=== PATIENT | male | born 1975 | race Caucasian/White ===

== ENCOUNTER 2018-10-16 09:41 | Inpatient (IN) ==
[2018-10-16] MEDS ORDERED: *HR* FentaNYL (PF) 100 MCG/2 ML VIAL IVP ONE (09:46)
[2018-10-16] MEDS ORDERED: 0.9 % Sodium Chloride 1,000 ML IVC ONE ×3 (09:46→11:12)
[2018-10-16] MEDS ORDERED: Ketorolac 30 MG/ML VIAL IVP ONE (09:46)
--- NOTE | 2018-10-16 10:33 | Emergency Department Note ---
Disposition Clinical Impression: Kidney stone on left side Sepsis Qualifiers: Sepsis type: sepsis due to unspecified organism Qualified Code(s): A41.9 - Sepsis, unspecified organism Disposition: Admitted As Inpatient Condition: Good Referrals: Solitario Pendleton DO [Primary Care Provider] - Forms: ED Satisfaction Letter Time of Disposition: 12:44 General Adult HPI - General Chief complaint: ED Back Pain/Injury Stated complaint: kidney stones Time Seen by Provider: 10/16/18 09:46 Source: patient, EMS Limitations: no limitations Nursing Notes Reviewed: Yes Vital Signs Reviewed: Yes - History of Present Illness HPI Narrative: 43 year old male presents to the ED with complaints pain with uriantion and left sided abdominal pain with radiation into his groin and testicle. Briana states that this is ismlia ot his episode one year ago when he presented iwth a large kidney sotne that required outpatient stent placemetn. Briana did have relief at that time. Briana stats that it has progressively gotten worse the past 24 hours and is rolling aroud the bed in discomfort. Briana statest hat he has been feels feverish at home without recorded fevers and weakness. His abdomen otherwise feels distended to him but no previous history of abdomial surgeries. Patient appears midlly diaphoretic at bedside likley secondary to pain. STate that he has been not able to pass stool over 24 hours but a few bess and it is otherwise extremely painful to urinate and that is left testicle is painful but it otherwise has resolve.d No history of torsion in the past Pain Scale: 10 - Related Data Home Medications Medication Instructions Recorded Confirmed No Known Home Drugs 10/16/18 10/16/18 Allergies Allergy/AdvReac Type Severity Reaction Status Date / Time No Known Allergies Allergy Verified 05/13/15 06:48 All systems ED: reviewed and negative except as stated. Review of Systems: As Per HPI Constitutional: Reports: chills. Denies: fever, weakness, weight change Eyes: Denies: eye pain, eye discharge, vision change ENT ED: Denies: ear pain, throat pain, dental pain, hearing loss, epistaxis, congestion, dysphagia Cardiovascular: Denies: chest pain, palpitations, dyspnea on exertion, edema, syncope Respiratory: Denies: cough, dyspnea, wheezes, hemoptysis, stridor Gastrointestinal: Reports: abdominal pain, nausea, vomiting. Denies: diarrhea, constipation, hematemesis, melena, hematochezia Genitourinary: Denies: urgency, dysuria, frequency, hematuria Musculoskeletal: Reports: back pain. Denies: neck pain, arthralgia, myalgia Integumentary: Denies: rash, abrasion, lesions Neurological: Denies: as per HPI, headache, weakness, numbness, paresthesias, confusion, abnormal gait, vertigo Psychiatric: Denies: anxiety, depression, suicidal thoughts, homicidal thoughts, auditory hallucinations, visual hallucinations Endocrine: Denies: fatigue Hematological/Lymphatic: Denies: easy bleeding, easy bruising Allergic/Immunologic: Denies: facial swelling, urticaria Past Medical History - Past Medical History Medical history: Reports: kidney stones, other Surgical history: Reports: vasectomy Psychiatric history: Reports: depression - Social History Smoking Status: Current every day smoker Smokeless Tobacco Status: Yes Alcohol use: Reports: none Drug use: Reports: none Physical Exam - General Limitations: no limitations General appearance: alert, anxious - Head Head exam: atraumatic, normocephalic, normal inspection - Eye Eye exam: Present: normal appearance, PERRL, EOMI - Expanded Eye Exam Pupils: Bilateral: reactive - ENT ENT exam: normal exam, normal oropharynx, mucous membranes moist - Expanded ENT Exam External ear exam: Present: normal external inspection Mouth exam: Present: normal external inspection Teeth exam: Present: normal inspection Throat exam: Present: normal inspection - Neck Neck exam: Present: normal inspection, full ROM, trachea midline - Chest Chest inspection: Present: normal inspection, symmetric chest wall rise - Respiratory Respiratory exam: Present: normal lung sounds bilaterally - Cardiovascular Cardiovascular exam: Present: regular rate, normal rhythm, normal heart sounds - Abdominal Exam Abdominal exam: Present: soft, tenderness (LLQ), distention. Absent: guarding, rebound, rigidity - Male exam: Present: normal inspection, normal testicular lie. Absent: induration, erythema - Extremities Exam Extremities exam: Present: normal inspection, full ROM. Absent: tenderness, pedal edema - Expanded Upper Extremity Exam Shoulder exam: Present: normal inspection, full ROM Arm exam: Present: normal inspection, full ROM Elbow exam: Present: normal inspection, full ROM Forearm/Wrist exam: Present: normal inspection, full ROM Hand exam: Present: normal inspection, full ROM Vascular exam: Normal: capillary refill, radial pulse - Expanded Lower Extremity Exam Hip/Pelvis exam: Present: normal inspection, full ROM Upper leg exam: Present: normal inspection, full ROM Knee exam: Present: normal inspection, full ROM Lower leg exam: Present: normal inspection, full ROM Ankle exam: Present: normal inspection, full ROM Foot/toe exam: Present: normal inspection, full ROM Neurovascular/Tendon exam: Absent: motor deficit, sensory deficit, tendon deficit - Back Exam Back exam: Present: normal inspection, full ROM, CVA tenderness (L) - Neurological Exam Neurological exam: Present: alert, oriented X3 - Expanded Neurological Exam Patient oriented to: Present: person, place, time Coma Scale Eye Opening: Spontaneous Coma Scale Motor Response: Obeys Commands Coma Scale Verbal Response: Oriented Coma Scale Total: 15 - Psychiatric Psychiatric exam: Present: normal affect, normal mood - Skin Skin exam: Present: warm, dry, intact, normal color Course Course Narrative: PLan is to obtain a CT of the abodomena to rule out kidney stone and then likely consult with urolgoy about dispotion. - Reevaluation(s) Reevaluation #1: updated patient on results. He has an infected kdiney stone on the left with hdyro and meets sepsis criteria but is not in septic shock. I have started ABX therapy and otherwise informed nursing staff that I was not informed about a (+) SIRS, and it was labelled as negative on the tracker board and needs to be changed to positive. Briana will not require 30ml/kg as he is not in shock and lactic acid is negative, and he is not hypotensive But we have given 3L. I will consult with urology for admission Time: 11:14 - Consultations Consultation #1: discussed case with dr. Cramer and he will see patient in consult. requests admission to medicine Time: 11:23 Consultation #2: discussed case with Dr. Mccartney and she has accepted to medicine. Time: 12:43 Vital Signs Temperature 100.6 F H 10/16/18 09:44 Pulse Rate 109 10/16/18 09:44 Respiratory Rate 20 10/16/18 09:44 Blood Pressure 136/73 10/16/18 09:44 O2 Sat by Pulse Oximetry 96 10/16/18 09:44 Temperature 100.6 F H 10/16/18 09:44 Pulse Rate 82 10/16/18 11:52 Respiratory Rate 20 10/16/18 11:52 Blood Pressure 115/66 10/16/18 11:52 O2 Sat by Pulse Oximetry 98 10/16/18 11:52 Oxygen Delivery Oxygen Delivery Room Air Medical Decision Making - Lab Data Result diagrams: 10/16/18 10:39 10/16/18 10:39 Lab Results 10/16/18 10/16/18 10/16/18 Range/Units 10:28 10:39 10:39 WBC 23.1 H (4.3-11.1) K/mcL RBC 4.88 (4.19-5.50) M/mcL Hgb 14.6 (12.9-16.9) g/dL Hct 43.2 (37.5-50.1) % MCV 88.5 (83.0-100.0) fL MCH 29.9 (28.0-33.3) pg MCHC 33.8 (31.6-35.5) g/dL RDW 12.5 (11.5-14.5) % Plt Count 204 (140-400) K/mcL MPV 8.8 L (9.4-12.4) fL Immature Gran % 1.0 (0-4) % Seg Neutrophils % 89.4 % Lymphocytes % 2.6 % Monocytes % 6.8 % Eosinophils % 0.0 % Basophils % 0.2 % Neutrophils # 20.7 H (1.6-8.9) K/mcL Lymphocytes # 0.6 (0.6-4.6) K/mcL Monocytes # 1.6 H (0.0-1.3) K/mcL Eosinophils # 0.0 (0.0-0.6) K/mcL Basophils # 0.0 (0.0-0.2) K/mcL Sodium (136-145) mEq/L Potassium (3.5-5.1) mEq/L Chloride (98-107) mEq/L Carbon Dioxide (23-29) mEq/L BUN (6-20) mg/dL Creatinine (0.70-1.30) mg/dL Est GFR ( Amer) (> 60) Est GFR (Non-Af Amer) (> 60) BUN/Creatinine Ratio (6-26) Glucose (70-105) mg/dL Calculated Osmolality (280-300) Lactic Acid 0.9 (0.5-2.2) mmol/L Calcium (8.6-10.3) mg/dL Total Bilirubin (0.3-1.0) mg/dL Direct Bilirubin (0.0-0.2) mg/dL Indirect Bilirubin (0.0-1.2) mg/dL AST (13-39) Units/L ALT (7-52) Units/L Alkaline Phosphatase (34-104) Units/L Serum Total Protein (6.4-8.9) g/dL Albumin (3.5-5.7) g/dL Globulin (2.4-3.5) g/dL Albumin/Globulin Ratio (1.1-2.2) Lipase (11-82) Units/L Urine Color Yellow (Yellow) Urine Clarity Turbid A (Clear) Urine pH 6.0 (5.0-8.0) pH Units Ur Specific [place] < 1.005 L (1.010-1.025) Urine Protein 100 H (Neg-Trace) mg/dL Urine Glucose (UA) Normal (Normal) mg/dL Urine Ketones Negative (Negative) mg/dL Urine Blood Large H (Negative) Urine Nitrite Negative (Negative) Urine Bilirubin Negative (Negative) Urine Urobilinogen Normal (Normal) mg/dL Ur Leukocyte Esterase Large H (Negative) Urine Microscopic RBC 0-3 (0-3) per hpf Urine Microscopic WBC TNTC H (0-3) per hpf Ur Squamous Epith Cells Many H (None-Few) per lpf Amorphous Sediment Moderate H (Few) Urine Bacteria Moderate H (None-Few) per hpf Hyaline Casts None Seen (None-Few) per lpf Ur Culture Indicated? YES A (NO) 10/16/18 Range/Units 10:39 WBC (4.3-11.1) K/mcL RBC (4.19-5.50) M/mcL Hgb (12.9-16.9) g/dL Hct (37.5-50.1) % MCV (83.0-100.0) fL MCH (28.0-33.3) pg MCHC (31.6-35.5) g/dL RDW (11.5-14.5) % Plt Count (140-400) K/mcL MPV (9.4-12.4) fL Immature Gran % (0-4) % Seg Neutrophils % % Lymphocytes % % Monocytes % % Eosinophils % % Basophils % % Neutrophils # (1.6-8.9) K/mcL Lymphocytes # (0.6-4.6) K/mcL Monocytes # (0.0-1.3) K/mcL Eosinophils # (0.0-0.6) K/mcL Basophils # (0.0-0.2) K/mcL Sodium 128 L (136-145) mEq/L Potassium 3.9 (3.5-5.1) mEq/L Chloride 94 L (98-107) mEq/L Carbon Dioxide 24 (23-29) mEq/L BUN 25 H (6-20) mg/dL Creatinine 2.05 H (0.70-1.30) mg/dL Est GFR ( Amer) 43 L (> 60) Est GFR (Non-Af Amer) 35 L (> 60) BUN/Creatinine Ratio 12 (6-26) Glucose 135 H (70-105) mg/dL Calculated Osmolality 272 L (280-300) Lactic Acid (0.5-2.2) mmol/L Calcium 9.1 (8.6-10.3) mg/dL Total Bilirubin 0.8 (0.3-1.0) mg/dL Direct Bilirubin 0.3 H (0.0-0.2) mg/dL Indirect Bilirubin 0.5 (0.0-1.2) mg/dL AST 15 (13-39) Units/L ALT 18 (7-52) Units/L Alkaline Phosphatase 66 (34-104) Units/L Serum Total Protein 7.6 (6.4-8.9) g/dL Albumin 3.8 (3.5-5.7) g/dL Globulin 3.8 H (2.4-3.5) g/dL Albumin/Globulin Ratio 1.0 L (1.1-2.2) Lipase 24 (11-82) Units/L Urine Color (Yellow) Urine Clarity (Clear) Urine pH (5.0-8.0) pH Units Ur Specific [place] (1.010-1.025) Urine Protein (Neg-Trace) mg/dL Urine Glucose (UA) (Normal) mg/dL Urine Ketones (Negative) mg/dL Urine Blood (Negative) Urine Nitrite (Negative) Urine Bilirubin (Negative) Urine Urobilinogen (Normal) mg/dL Ur Leukocyte Esterase (Negative) Urine Microscopic RBC (0-3) per hpf Urine Microscopic WBC (0-3) per hpf Ur Squamous Epith Cells (None-Few) per lpf Amorphous Sediment (Few) Urine Bacteria (None-Few) per hpf Hyaline Casts (None-Few) per lpf Ur Culture Indicated? (NO)
[2018-10-16 10:41] LABS: Bilirubin,Urine Negative (Negative); Blood,Urine Large (Negative); Clarity,Urine Turbid (Clear); Color,Urine Yellow (Yellow); Glucose,Urine (UA) Normal (Normal); Ketones,Urine Negative (Negative); Leukocyte Esterase,Urine Large (Negative); Nitrite,Urine Negative (Negative); Protein,Urine 100 mg/dL (Neg-Trace); Specific Gravity,Urine < 1.005 (1.010-1.025); Urobilinogen,Urine Normal (Normal)
[2018-10-16 10:43] LABS: Bacteria,Urine Moderate per hpf (None-Few); Hyaline Casts,Urine None Seen per lpf (None-Few); RBC,Urine 0-3 per hpf (0-3); Squamous Epithelial Cell,Urine Many per lpf (None-Few); WBC,Urine TNTC per hpf (0-3)
[2018-10-16 10:55] LABS: Amorphous Sediment,Urine Moderate (Few)
[2018-10-16 10:56] LABS: Basophils % 0.2 %; Hematocrit 43.2 % (37.5-50.1); Hemoglobin 14.6 g/dL (12.9-16.9); Lymphocytes # 0.6 K/mcL (0.6-4.6); Lymphocytes % 2.6 %; Mean Corpuscular HGB Conc 33.8 g/dL (31.6-35.5); Mean Corpuscular Hemoglobin 29.9 pg (28.0-33.3); Mean Corpuscular Volume 88.5 fL (83.0-100.0); Mean Platelet Volume 8.8 fL (9.4-12.4); Monocytes # 1.6 K/mcL (0.0-1.3); Monocytes % 6.8 %; Neutrophils # 20.7 K/mcL (1.6-8.9); Platelet Count 204 K/mcL (140-400); Red Blood Count 4.88 M/mcL (4.19-5.50); Red Cell Distribution Width 12.5 % (11.5-14.5); Segmented Neutrophils % 89.4 %; White Blood Count 23.1 K/mcL (4.3-11.1)
[2018-10-16] MEDS ORDERED: cefTRIAXone 1,000 MG in Water for inj. (sterile) 10 ML IVP ONE (10:56)
[2018-10-16 11:13] LABS: Albumin 3.8 g/dL (3.5-5.7); Bilirubin,Direct 0.3 mg/dL (0.0-0.2); Bilirubin,Indirect 0.5 mg/dL (0.0-1.2); Bilirubin,Total 0.8 mg/dL (0.3-1.0); Calcium 9.1 mg/dL (8.6-10.3); Globulin 3.8 g/dL (2.4-3.5); Potassium 3.9 mEq/L (3.5-5.1); Total Protein 7.6 g/dL (6.4-8.9)
[2018-10-16] MEDS ORDERED: Ondansetron 4 MG/2 ML VIAL IVP PRN (13:37)
[2018-10-16] MEDS ORDERED: Naloxone 0.4 MG/ML INJ IVP PRN (13:37)
--- NOTE | 2018-10-16 14:29 | Internal Med History&Physical ---
<Tai Dorsey - Last Filed: 10/16/18 14:50> Date of Encounter: 10/16/18 Time of Encounter: 14:00 Internal Medicine - H&P: HPI Chief complaint: L flank pain Admitted From: Emergency Dept History of present illness: Mr. Anderson is a 43 year old male with a past medical history of nephrolithiasis and a past surgical history of a right ureteral stent (2016) that presents for left-sided flank pain and fever. Patient says that he has been experiencing these symptoms for the past 2 days. He describes the pain radiating from his left flank all the way down to his left testicle. Patient says the pain is constant. Says it is sharp in nature. He also admits to a subjective fever for the past 2 days. He admits to dysuria but denies any geeta hematuria. Decreased urine output. He says that these symptoms are similar to the kidney stone that he had a couple years ago. He denies any nausea or vomiting. He says that he has been able to tolerate by mouth intake at home. Patient denies any family history of kidney stones. He says that he has been drinking about 8 sodas a day and drinks very little water. Upon presentation to the ED, patient presented with leukocytosis of 23.1, febrile at 100.6, and was tachycardic with a pulse rate of 109. Blood pressure was normotensive. Patient did also present with an elevated creatinine of 2.05 with a baseline of 1.49. Lactic acid levels were within normal limits. Liver enzymes within normal limits. Lipase was normal. UA showed large blood with positive leukocyte Estrace. CT of the abdomen showed a 7 x 5 mm obstructing calculus in the distal left ureter in the mid pelvis with mild hydronephrosis and hydroureter. Patient was subsequently started on IV Rocephin for suspected UTI. Consult was placed to urology for the obstructing renal calculus. Past Med Surg Social Fam HX - Past Medical History Medical history: kidney stones, other Additional medical history: psoriasis, Psychiatric history: depression - Past Surgical History Surgical History: vasectomy Additional surgical history: lithotripsy - Social History Smoking Status: Current every day smoker Smokeless Tobacco Status: Yes Alcohol use: none Drug use: none Internal Medicine - H&P: Meds No Known Home Drugs 10/16/18 [History] Allergy/AdvReac Type Severity Reaction Status Date / Time No Known Allergies Allergy Verified 05/13/15 06:48 All Systems PM: A 10-system review of systems was performed and is negative for pertinent findings except as documented above in the HPI. - EENT Eyes: as per HPI Nose, mouth and throat: dry mouth - Cardiovascular Cardiovascular ROS IM: no chest pain, no dyspnea, no edema - Respiratory Respiratory: no cough, no dyspnea, no wheezing, no excessive phlegm production - Gastrointestinal Gastrointestinal: constipation, no abdominal pain, no nausea, no vomiting - Genitourinary Genitourinary ROS male: difficulty urinating, flank pain, testicular pain - Musculoskeletal Musculoskeletal ROS IM: back pain - Neurological Neurological ROS: as per HPI, dizziness, headache(s) - Psychiatric Psychiatric: as per HPI - Constitutional Vitals: Temp Pulse Resp BP Pulse Ox 100.6 F H 82 18 115/58 98 10/16/18 09:44 10/16/18 11:52 10/16/18 14:09 10/16/18 14:09 10/16/18 11:52 Exam: GENERAL APPEARANCE: Obese, alert and cooperative, and appears to be in mild- moderate acute distress. HEAD: normocephalic. EYES: vision is grossly intact. EARS: hearing grossly intact. NOSE: No nasal discharge. THROAT: Oral cavity and pharynx showed mild dry mucosa. No inflammation, swelling, exudate, or lesions. Teeth and gingiva in good general condition. NECK: Neck supple, non-tender without lymphadenopathy, masses or thyromegaly. CARDIAC: Normal S1 and S2. No S3, S4 or murmurs. Rhythm is regular. There is no peripheral edema, cyanosis or pallor. Extremities are warm and well perfused. Capillary refill is less than 2 seconds. No carotid bruits. LUNGS: Clear to auscultation and percussion without rales, rhonchi, wheezing or diminished breath sounds. ABDOMEN: Positive bowel sounds. Soft, nondistended, nontender. No guarding or rebound. No masses. MUSKULOSKELETAL: Adequately aligned spine. ROM intact spine and extremities. No joint erythema or tenderness. Normal muscular development. Normal gait. BACK: Examination of the spine reveals normal gait and posture, no spinal deformity, symmetry of spinal muscles, without tenderness, decreased range of motion or muscular spasm. ; No CVA tenderness b/l. No suprapubic pain. Testicular exam revealed a positive cremaster reflux. No testicular hernia noted. No pain upon palpation b/l. EXTREMITIES: No significant deformity or joint abnormality. No edema. Peripheral pulses intact. No varicosities. LOWER EXTREMITY: Examination of both feet reveals all toes to be normal in size and symmetry, normal range of motion, normal sensation with distal capillary filling of less than 2 seconds without tenderness, swelling, discoloration, nodules, weakness or deformity; examination of both ankles, knees, legs, and hips reveals normal range of motion, normal sensation without tenderness, sw elling, discoloration, crepitus, weakness or deformity. SKIN: Skin normal color, texture and turgor with no lesions or eruptions. PSYCHIATRIC: The mental examination revealed the patient was oriented to person, place, and time. T Internal Med - H&P Results - Labs CBC & Chem 7: 10/16/18 10:39 10/16/18 10:39 Labs: Short CBC 10/16/18 Range/Units 10:39 WBC 23.1 H (4.3-11.1) K/mcL Hgb 14.6 (12.9-16.9) g/dL Hct 43.2 (37.5-50.1) % Plt Count 204 (140-400) K/mcL Neutrophils # 20.7 H (1.6-8.9) K/mcL BMP 10/16/18 10:39 Sodium 128 L Potassium 3.9 Chloride 94 L Carbon Dioxide 24 BUN 25 H Creatinine 2.05 H Glucose 135 H Calcium 9.1 Liver Function 10/16/18 Range/Units 10:39 Total Bilirubin 0.8 (0.3-1.0) mg/dL Direct Bilirubin 0.3 H (0.0-0.2) mg/dL AST 15 (13-39) Units/L ALT 18 (7-52) Units/L Alkaline Phosphatase 66 (34-104) Units/L Albumin 3.8 (3.5-5.7) g/dL Urine 10/16/18 Range/Units 10:28 Urine Color Yellow (Yellow) Urine Clarity Turbid A (Clear) Urine pH 6.0 (5.0-8.0) pH Units Ur Specific [place] < 1.005 L (1.010-1.025) Urine Protein 100 H (Neg-Trace) mg/dL Urine Glucose (UA) Normal (Normal) mg/dL - Impressions ITS Impressions Abdomen/Pelvis CT 10/16/18 09:46 IMPRESSION: 1. There is a 7 x 5 mm obstructing calculus in the distal left ureter in the mid pelvis causing mild hydronephrosis and hydroureter. 2. No intrarenal calculi. 3. 2 exophytic right renal cysts. D/ / Bjorn Carter MD / Bjorn Carter MD Interpreting Provider: Bjorn Carter MD - Assessment and Plan (1) Left ureteral calculus Current Visit: Yes Status: Acute Assessment and plan: CT of the abdomen showed a 7 x 5 mm obstructing calculus in the distal left ureter in the mid pelvis with mild hydronephrosis and hydroureter. Patient a history of previous renal stones with a prior ureteral stent on the R side. Urology was consulted in the ED and is aware of patient. Admitted with severe sepsis secondary to leukocytosis, tachycardia, and fever. No signs of shock. Patient started on rocephin in the ED. Plan: - IVF. - F/U with urology. - Pain control. - NPO. - Flomax 0.4 mg BID. (2) UTI (urinary tract infection) Current Visit: Yes Status: Acute Assessment and plan: Patient complaining of dysuria but denying gross hematuria. Patient was also febrile on admission. UA was positive for leukocyte esterase, blood, and white blood cells. Patient was started on Rocephin in the ED. Urine cultures were taken. Plan: - start ciprofloxacin 400 mg IV q12H. - Urine cultures pending. - C/W IVF. Qualifiers: Qualified Code(s): N39.0 - Urinary tract infection, site not specified (3) Severe sepsis Current Visit: Yes Status: Acute Assessment and plan: Leukocytosis of 23.1, tachycardia 109, and febrile with 100.6. Source of infection presumed UTI. Started on IV ABX in ED. Plan: - IVF. - Blood cultures pending. - Started on ciprofloxacin for UTI. - continue to monitor vitals. (4) ADRIENNE (acute kidney injury) Current Visit: Yes Status: Acute Assessment and plan: Creatinine of 2.05 with a baseline of 1.49 and baseline GFR of 52. Likely secondary to hypovolemia in setting of UTI, obstructive calculus, sepsis, and dehydration. Plan: - IVF. - Renal dose medications. - Avoid nephrotoxins. (5) Hyponatremia Current Visit: Yes Status: Acute Assessment and plan: Likely hypovolemic in etiology. Plan: - NS IVF. (6) Tobacco abuse Current Visit: Yes Status: Acute Assessment and plan: - Counseled on cessation. (7) DVT prophylaxis Current Visit: Yes Status: Acute Assessment and plan: - SCDs. - Time Spent With Patient Total time spent is greater than 50% in coordination of care (as documented) at patient's floor/unit and/or counseling patient: <Sergio Fallon Dee - Last Filed: 10/16/18 19:04> Date of Encounter: 10/16/18 Internal Medicine - H&P: HPI History of present illness: Mr. Anderson is a 43 year old male All Systems PM: A 10-system review of systems was performed and is negative for pertinent findings except as documented above in the HPI. - Constitutional Vitals: Temp Pulse Resp BP Pulse Ox 97.8 F 82 18 103/72 96 10/16/18 14:56 10/16/18 14:56 10/16/18 14:56 10/16/18 14:56 10/16/18 14:56 Internal Med - H&P Results - Labs CBC & Chem 7: 10/16/18 10:39 10/16/18 10:39 Labs: Short CBC 10/16/18 Range/Units 10:39 WBC 23.1 H (4.3-11.1) K/mcL Hgb 14.6 (12.9-16.9) g/dL Hct 43.2 (37.5-50.1) % Plt Count 204 (140-400) K/mcL Neutrophils # 20.7 H (1.6-8.9) K/mcL BMP 10/16/18 10:39 Sodium 128 L Potassium 3.9 Chloride 94 L Carbon Dioxide 24 BUN 25 H Creatinine 2.05 H Glucose 135 H Calcium 9.1 Liver Function 10/16/18 Range/Units 10:39 Total Bilirubin 0.8 (0.3-1.0) mg/dL Direct Bilirubin 0.3 H (0.0-0.2) mg/dL AST 15 (13-39) Units/L ALT 18 (7-52) Units/L Alkaline Phosphatase 66 (34-104) Units/L Albumin 3.8 (3.5-5.7) g/dL Urine 10/16/18 Range/Units 10:28 Urine Color Yellow (Yellow) Urine Clarity Turbid A (Clear) Urine pH 6.0 (5.0-8.0) pH Units Ur Specific [place] < 1.005 L (1.010-1.025) Urine Protein 100 H (Neg-Trace) mg/dL Urine Glucose (UA) Normal (Normal) mg/dL - Impressions ITS Impressions Abdomen/Pelvis CT 10/16/18 09:46 IMPRESSION: 1. There is a 7 x 5 mm obstructing calculus in the distal left ureter in the mid pelvis causing mild hydronephrosis and hydroureter. 2. No intrarenal calculi. 3. 2 exophytic right renal cysts. D/ / Bjorn Carter MD / Bjorn Carter MD Interpreting Provider: Bjorn Carter MD - Assessment and Plan (1) Severe sepsis Current Visit: Yes Status: Acute (2) Left ureteral calculus Current Visit: Yes Status: Acute (3) UTI (urinary tract infection) Current Visit: Yes Status: Acute Qualifiers: Urinary tract infection type: acute cystitis Hematuria presence: with hematuria Qualified Code(s): N30.01 - Acute cystitis with hematuria (4) Hyponatremia Current Visit: Yes Status: Acute (5) ADRIENNE (acute kidney injury) Current Visit: Yes Status: Acute (6) Tobacco abuse Current Visit: Yes Status: Acute - Time Spent With Patient Total time spent is greater than 50% in coordination of care (as documented) at patient's floor/unit and/or counseling patient: - Attending Attestation I examined this patient and my medical decision-making was reviewed with the Resident Physician on 10/16/18. I agree with the documented findings, disposition and treatment plan as described except to the extent set forth below. Mr Anderson is 43 y/o man with hx of prior kidney stone presented to ED with R side pain and urinary symptoms. Found to have obstructing stone and evidence of UTI. He has received pain medications and is resting. Exam as above - lungs clear. Heart reg and not tachy now. Abd soft. WBC elevated. ADRIENNE on labs as well most likely due to obstruction and infection/dehydration. Appreciate urology input. Plan Sepsis, UTI, obstructing stone, ADRIENNE - IV fluids, abx, pain control. OR per urology.
[2018-10-16] MEDS: 0.9 % Sodium Chloride 1,000 ML IVC SCH ×2 (14:47→22:41)
[2018-10-16] MEDS: OXYCODONE Oral CONC 10 MG/0.5 ML ORAL.SYG SL PRN ×2 (14:47→20:38)
--- NOTE | 2018-10-16 15:07 | Urology Progress Note ---
Date of Encounter: 10/16/18 (Seen and examined with full consult note to follow. Obstructing left ureteral calculus with hydronephrosis and positive urine. HD stable with normal lactate. Plan: Abx, pain control, urinary diversion with stent GENIA (tomorrow 745 AM).) Time of Encounter: 15:05 Objective Initial Vital Signs Temp Pulse Resp BP Pulse Ox 100.6 F H 109 20 136/73 96 10/16/18 09:44 10/16/18 09:44 10/16/18 09:44 10/16/18 09:44 10/16/18 09:44 - Labs 10/16/18 10:39 10/16/18 10:39 Diabetes panel 10/16/18 Range/Units 10:39 Sodium 128 L (136-145) mEq/L Potassium 3.9 (3.5-5.1) mEq/L Chloride 94 L (98-107) mEq/L Carbon Dioxide 24 (23-29) mEq/L BUN 25 H (6-20) mg/dL Creatinine 2.05 H (0.70-1.30) mg/dL Glucose 135 H (70-105) mg/dL Calcium 9.1 (8.6-10.3) mg/dL AST 15 (13-39) Units/L ALT 18 (7-52) Units/L Alkaline Phosphatase 66 (34-104) Units/L Albumin 3.8 (3.5-5.7) g/dL Calcium panel 10/16/18 Range/Units 10:39 Calcium 9.1 (8.6-10.3) mg/dL Albumin 3.8 (3.5-5.7) g/dL Pituitary panel 10/16/18 Range/Units 10:39 Sodium 128 L (136-145) mEq/L Potassium 3.9 (3.5-5.1) mEq/L Chloride 94 L (98-107) mEq/L Carbon Dioxide 24 (23-29) mEq/L BUN 25 H (6-20) mg/dL Creatinine 2.05 H (0.70-1.30) mg/dL Glucose 135 H (70-105) mg/dL Calcium 9.1 (8.6-10.3) mg/dL Adrenal panel 10/16/18 Range/Units 10:39 Sodium 128 L (136-145) mEq/L Potassium 3.9 (3.5-5.1) mEq/L Chloride 94 L (98-107) mEq/L Carbon Dioxide 24 (23-29) mEq/L BUN 25 H (6-20) mg/dL Creatinine 2.05 H (0.70-1.30) mg/dL Glucose 135 H (70-105) mg/dL Calcium 9.1 (8.6-10.3) mg/dL Total Bilirubin 0.8 (0.3-1.0) mg/dL AST 15 (13-39) Units/L ALT 18 (7-52) Units/L Alkaline Phosphatase 66 (34-104) Units/L Albumin 3.8 (3.5-5.7) g/dL Consult Discharge Plan - Plan Referrals: Solitario Pendleton DO [Primary Care Provider] -
[2018-10-16] MEDS: Ketorolac 15 MG/ML VIAL IVP PRN (17:42)
[2018-10-17] MEDS: Ketorolac 15 MG/ML VIAL IVP PRN ×3 (02:10→16:35)
[2018-10-17 04:50] LABS: Potassium 4.2 mEq/L (3.5-5.1)
[2018-10-17 05:12] LABS: Hematocrit 36.6 % (37.5-50.1); Mean Corpuscular HGB Conc 33.3 g/dL (31.6-35.5); Mean Corpuscular Hemoglobin 30.2 pg (28.0-33.3); Mean Corpuscular Volume 90.6 fL (83.0-100.0); Mean Platelet Volume 9.6 fL (9.4-12.4); Platelet Count 178 K/mcL (140-400); Red Blood Count 4.04 M/mcL (4.19-5.50)
[2018-10-17 05:18] LABS: Hemoglobin 12.2 g/dL (12.9-16.9)
[2018-10-17 05:34] LABS: Enterococcus by PCR Not Detected (Not Detect); blaKPC Carbapenem-Resist Gene Not Detected (Not Detect); mecA Methicillin-Resist Gene Not Detected (Not Detect); vanA/B Vancomycin-Resist Genes Not Detected (Not Detect)
[2018-10-17 05:35] LABS: Acinetobacter baumannii by PCR Not Detected (Not Detect); Candida albicans by PCR Not Detected (Not Detect); Candida glabrata by PCR Not Detected (Not Detect); Candida krusei by PCR Not Detected (Not Detect); Candida parapsilosis by PCR Not Detected (Not Detect); Candida tropicalis by PCR Not Detected (Not Detect); Enterobacter cloacae Cmplx PCR Not Detected (Not Detect); Enterobacteriaceae by PCR Not Detected (Not Detect); Escherichia coli by PCR Not Detected (Not Detect); Klebsiella oxytoca by PCR Not Detected (Not Detect); Klebsiella pneumoniae by PCR Not Detected (Not Detect); Proteus by PCR Not Detected (Not Detect); Pseudomonas aeruginosa by PCR Not Detected (Not Detect); Serratia marcescens by PCR Not Detected (Not Detect); Staphylococcus aureus by PCR DETECTED (Not Detect); Staphylococcus by PCR DETECTED (Not Detect); Streptococcus agalactiae(B)PCR Not Detected (Not Detect); Streptococcus by PCR Not Detected (Not Detect); Streptococcus pneumoniae PCR Not Detected (Not Detect); Streptococcus pyogenes (A) PCR Not Detected (Not Detect)
[2018-10-17] MEDS ORDERED: *HR* FentaNYL (PF) 100 MCG/2 ML VIAL ONE (07:08)
[2018-10-17] MEDS ORDERED: *HR* Midazolam HCl 2 MG/2 ML VIAL ONE (07:08)
[2018-10-17] MEDS ORDERED: *HR* Propofol 200 MG/20 ML VIAL IVP ONE (07:08)
[2018-10-17] MEDS ORDERED: Albuterol 2.5 MG/3 ML NEBULIZER IH ONE ×2 (07:24→09:52)
--- NOTE | 2018-10-17 07:25 | Anesthesia Evaluation PreOp ---
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) Other Medical History: Renal (stones), Other (BMI 41) Anesthesia History: No Prior Anesthetic Complications, Past Anesthesia (stone extraction) Alcohol Use: none Drug use: none Medications and Allergies No Known Home Drugs 10/16/18 [History] Allergy/AdvReac Type Severity Reaction Status Date / Time No Known Allergies Allergy Verified 05/13/15 06:48 - Meds/Allergy Pre-op Review Medications Reviewed: Yes Allergies Reviewed: Yes Beta Blockers on Current Med List: No Anesthesia Results - Labs 10/17/18 03:53 10/17/18 03:53 Anesthesia Exam Vital Signs/O2 Sat, Most Current Temp Pulse Resp BP Pulse Ox 98.2 F 87 18 130/78 91 10/17/18 04:33 10/17/18 04:33 10/17/18 04:33 10/17/18 04:33 10/17/18 04:33 Weight: 122kg - HEENT Pupil (Motor): Pupils equal, EOMI Mallampati: III Teeth: Normal Oral Opening: Greater than 3 - 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
[2018-10-17] MEDS ORDERED: Isovue-300 50 ML VIAL ONE (07:31)
[2018-10-17] MEDS ORDERED: Acetaminophen IV 1,000 MG/100 ML INFUS..BTL ONE (07:39)
[2018-10-17] MEDS ORDERED: *HR* PHENYLEPHRINE 1,000 MCG/10 ML SYRINGE IVP ONE (07:59)
[2018-10-17] MEDS ORDERED: Ketorolac 30 MG/ML VIAL ONE (08:04)
--- NOTE | 2018-10-17 08:23 | Operative Note ---
Date of procedure: 10/17/18 Pre-op diagnosis: left ureteral calculus Post-op diagnosis: same Procedure: Cystoscopy, left retrograde ureteral pyelography, left double-J stent placement Implants: 6 x 26 left double-J stent Complications: None Anesthesia: VERÓNICA Surgeon: Camacho Cramer Was there an emergency veterinary assistant present: No Estimated blood loss (cc): 0 Specimen: 0 Condition: stable Disposition: PACU Procedure in Detail: The patient brought the operating theater placed on table supine position. Is identified by name and administered a general anesthetic. Patient placed in dorsal lithotomy. The patient was prepped and draped in the normal sterile fashion. A cystoscope was inserted into the urethral meatus and advanced with the bladder under direct visualization. There were no mucosal abnormalities. An open-ended catheter was placed the tip of the left ureteral orifice gentle injection of contrast a left retrograde ureteral Polygram was performed. Intraoperative interpretation of radial pyelographic images revealed desiccation in the distal ureter consistent with stone seen on CT. There was moderate hydronephrosis. Based on these findings urinary diversion by stenting was indicated. A Glidewire was advanced the left renal pelvis. Over the Glidewire a 6 x 26stent was advanced. Was sent was felt be in good position the Glidewire was removed. Proximal and distal curls stent were confirmed in good position via fluoroscopy. All answers were removed from the bladder. His ended the operative procedure.
[2018-10-17] MEDS ORDERED: Ringers Solution, Lactated 1,000 ML ONE (08:27)
--- NOTE | 2018-10-17 08:58 | Anesthesia Evaluation Post Op ---
Date of Encounter: 10/17/18 Time of Encounter: 08:57 - Vital Signs Vital Signs: Selected Entries 10/17/18 08:22 10/17/18 08:42 Temperature 98.5 F Pulse Rate 91 Respiratory Rate 18 Blood Pressure 102/62 O2 Sat by Pulse Oximetry 96 - Lungs Lungs: Clear Ascult./Percussion - Airway Airway: Non-obstructed - Cardiovascular Regular Rate - Mental Status Mental Status: Alert & Oriented, Answers Appropriately - Pain Pain Scale: 0 Pain Scale used: Numeric (1 - 10) - Nausea Vomiting Nausea Vomiting: Not Present - Hydration Hydration: Ice chips, Has not voided - Discharge PostOp Status: Transfer Patient to floor
[2018-10-17] MEDS ORDERED: Ondansetron 4 MG/2 ML VIAL IVP PRN (09:52)
[2018-10-17] MEDS ORDERED: Naloxone 0.4 MG/ML INJ IVP PRN (09:52)
--- NOTE | 2018-10-17 12:33 | Internal Med Progress Note ---
<SunitaTai - Last Filed: 10/17/18 12:31> Hospitalist Progress Note - Encounter Date of Encounter: 10/17/18 Time of Encounter: 08:20 - Subjective Interval History: When seen today patient said his pain has been controlled. Denies any nausea or vomiting. Denies any chest pain or shortness of breath. Denies any back pain. Denies any fever. - Exam Vitals: Temp Pulse Resp BP Pulse Ox 98.1 F 77 17 127/78 96 10/17/18 11:42 10/17/18 11:42 10/17/18 11:42 10/17/18 11:42 10/17/18 11:42 Exam: GENERAL APPEARANCE: Obese, alert and cooperative, and appears to be in mild- moderate acute distress. HEAD: normocephalic. EYES: vision is grossly intact. EARS: hearing grossly intact. NOSE: No nasal discharge. THROAT: Oral cavity and pharynx showed mild dry mucosa. No inflammation, swelling, exudate, or lesions. Teeth and gingiva in good general condition. NECK: Neck supple, non-tender without lymphadenopathy, masses or thyromegaly. CARDIAC: Normal S1 and S2. No S3, S4 or murmurs. Rhythm is regular. There is no peripheral edema, cyanosis or pallor. Extremities are warm and well perfused. Capillary refill is less than 2 seconds. No carotid bruits. LUNGS: Clear to auscultation and percussion without rales, rhonchi, wheezing or diminished breath sounds. ABDOMEN: Positive bowel sounds. Soft, nondistended, nontender. No guarding or rebound. No masses. MUSKULOSKELETAL: Adequately aligned spine. ROM intact spine and extremities. No joint erythema or tenderness. Normal muscular development. Normal gait. BACK: Examination of the spine reveals normal gait and posture, no spinal deformity, symmetry of spinal muscles, without tenderness, decreased range of motion or muscular spasm. EXTREMITIES: No significant deformity or joint abnormality. No edema. Peripheral pulses intact. No varicosities. LOWER EXTREMITY: Examination of both feet reveals all toes to be normal in size and symmetry, normal range of motion, normal sensation with distal capillary filling of less than 2 seconds without tenderness, swelling, discoloration, nodules, weakness or deformity; examination of both ankles, knees, legs, and hips reveals normal range of motion, normal sensation without tenderness, swelling, discoloration, crepitus, weakness or deformity. SKIN: Skin normal color, texture and turgor with no lesions or eruptions. PSYCHIATRIC: The mental examination revealed the patient was oriented to person, place, and time. - Assessment and Plan (1) Left ureteral calculus Current Visit: Yes Status: Acute Assessment and Plan: S/P L ureter double-J stent placement earlier today. Pain is well controlled. Denies dysuria or hematuria. Plan: - Start regular diet. - C/W pain control. - C/W IVF. - Flomax 0.4 mg PO BID. (2) UTI (urinary tract infection) Current Visit: Yes Status: Acute Assessment and Plan: Patient complaining of dysuria but denying gross hematuria on presentation. Patient was also febrile on admission. UA was positive for leukocyte esterase, blood, and white blood cells. Patient was started on Rocephin in the ED. Urine cultures were taken. WBC downtrending. Plan: - C/W ciprofloxacin 400 mg IV q12H. - Urine cultures pending. - C/W IVF. (3) Severe sepsis Current Visit: Yes Status: Acute Assessment and Plan: Admission labs: Leukocytosis of 23.1, tachycardia 109, and febrile with 100.6. Source of infection presumed UTI. Started on IV ABX in ED. WBC today is downdtrending. Blood cultures positive for Gram positive Cocci - Staph A. Plan: - Echocardiogram to r/o endocarditis. - Repeat blood cultures. - Start cefazolin. - IVF. - C/W ciprofloxacin day #2 for UTI. - continue to monitor vitals. (4) Bacteremia Current Visit: Yes Status: Acute Assessment and Plan: See plan for sepsis. (5) ADRIENNE (acute kidney injury) Current Visit: Yes Status: Acute Assessment and Plan: Creatinine of 2.05 with a baseline of 1.49 and baseline GFR of 52. Likely secondary to hypovolemia in setting of UTI, obstructive calculus, sepsis, and dehydration. Renal function improving with a creatinine of 1.67 today. Plan: - C/W IVF. - Renal dose medications. - Avoid nephrotoxins. (6) Hyponatremia Current Visit: Yes Status: Acute Assessment and Plan: Likely hypovolemic in etiology. Plan: - NS IVF. (7) Tobacco abuse Current Visit: Yes Status: Acute Assessment and Plan: - Counseled on cessation. (8) DVT prophylaxis Current Visit: Yes Status: Acute Assessment and Plan: - SCDs. - Time Spent with Patient Total time spent is greater than 50% in coordination of care (as documented) at patient's floor/unit and/or counseling patient: Internal Medicine: Result - Labs CBC & Chem 7: 10/17/18 03:53 10/17/18 03:53 Labs: Short CBC 10/17/18 Range/Units 03:53 WBC 12.0 H (4.3-11.1) K/mcL Hgb 12.2 L D (12.9-16.9) g/dL Hct 36.6 L (37.5-50.1) % Plt Count 178 (140-400) K/mcL BMP 10/17/18 03:53 Sodium 131 L Potassium 4.2 Chloride 104 Carbon Dioxide 20 L BUN 28 H Creatinine 1.67 H Glucose 110 H Calcium 8.0 L - Impressions Impressions Fluoroscopy 10/17/18 00:00 IMPRESSION: Intraprocedural fluoroscopic spot images as above. See separate procedure report for more information. D/ / Raphael Fox MD / Raphael Fox MD Interpreting Provider: Raphael Fox MD X-Ray 10/17/18 00:00 IMPRESSION: Intraprocedural fluoroscopic spot images as above. See separate procedure report for more information. D/ / Raphael Fox MD / Raphael Fox MD Interpreting Provider: Raphael Fox MD Consult Discharge Plan - Plan Referrals: Solitario Pendleton DO [Primary Care Provider] - <Sergio Fallon - Last Filed: 10/17/18 17:56> Hospitalist Progress Note - Encounter Date of Encounter: 10/17/18 - Exam Vitals: Temp Pulse Resp BP Pulse Ox 98.1 F 77 17 127/78 96 10/17/18 11:42 10/17/18 11:42 10/17/18 11:42 10/17/18 11:42 10/17/18 11:42 - Assessment and Plan (1) Severe sepsis Current Visit: Yes Status: Acute (2) Left ureteral calculus Current Visit: Yes Status: Acute (3) UTI (urinary tract infection) Current Visit: Yes Status: Acute (4) Hyponatremia Current Visit: Yes Status: Acute (5) ADRIENNE (acute kidney injury) Current Visit: Yes Status: Acute (6) Tobacco abuse Current Visit: Yes Status: Acute - Time Spent with Patient Total time spent is greater than 50% in coordination of care (as documented) at patient's floor/unit and/or counseling patient: Internal Medicine: Result - Labs CBC & Chem 7: 10/17/18 03:53 10/17/18 03:53 Labs: Short CBC 10/17/18 Range/Units 03:53 WBC 12.0 H (4.3-11.1) K/mcL Hgb 12.2 L D (12.9-16.9) g/dL Hct 36.6 L (37.5-50.1) % Plt Count 178 (140-400) K/mcL BMP 10/17/18 03:53 Sodium 131 L Potassium 4.2 Chloride 104 Carbon Dioxide 20 L BUN 28 H Creatinine 1.67 H Glucose 110 H Calcium 8.0 L - Impressions Impressions Fluoroscopy 10/17/18 00:00 IMPRESSION: Intraprocedural fluoroscopic spot images as above. See separate procedure report for more information. D/ / Raphael Fox MD / Raphael Fox MD Interpreting Provider: Raphael Fox MD X-Ray 10/17/18 00:00 IMPRESSION: Intraprocedural fluoroscopic spot images as above. See separate procedure report for more information. D/ / Raphael Fox MD / Raphael Fox MD Interpreting Provider: Raphael Fox MD - Attending Attestation I examined this patient and my medical decision-making was reviewed with the Resident Physician on 10/17/18. I agree with the documented findings, disposition and treatment plan as described except to the extent set forth below. Mr Anderson is currently admitted for acute sepsis due to MSSA. He has hydronephrosis due to stone. He is s/p stent this AM. He remains high risk due to potential for worsening clinical status. Mr Anderson is just back from OR. He is having some pain. No fever. No nausea. Exam - restless. No wheeze. Plan - change to Ancef IV. Echo. Repeat cultures. Will need ID to see Saturday. <Tai Dorsey - Last Filed: 10/17/18 12:31> (2) UTI (urinary tract infection) Qualifiers: Urinary tract infection type: acute cystitis Hematuria presence: with hematuria Qualified Code(s): N30.01 - Acute cystitis with hematuria <Sergio Fallon - Last Filed: 10/17/18 17:56> (3) UTI (urinary tract infection) Qualifiers: Urinary tract infection type: acute cystitis Hematuria presence: without he maturia Qualified Code(s): N30.00 - Acute cystitis without hematuria
--- NOTE | 2018-10-17 13:29 | Urology - Consult Note ---
<Bridgette Flores N - Last Filed: 10/17/18 13:25> Date of Encounter: 10/17/18 Time of Encounter: 11:15 - Assessment and Plan (1) Ureteral stone with hydronephrosis Current Visit: Yes Status: Acute Assessment and plan: Patient is a 43-year-old male who presents with a 7 x 5 mm left ureteral stone and hydronephrosis. Patient is status post cystoscopy, left retrograde pyelogram and left ureteral stent placement with Dr. Cramer. Patient is recovering well postoperatively. Vital signs are stable and afebrile. (2) UTI (urinary tract infection) Current Visit: Yes Status: Acute Assessment and plan: Patient is a 43-year-old male who presents with a urinary tract infection. Preliminary urine culture is positive for gram-positive cocci. Patient is receiving IV Cipro. Patient is status post urinary diversion with ureteral stent placement, and he is recovering very well. Qualifiers: Urinary tract infection type: acute cystitis Hematuria presence: without hematuria Qualified Code(s): N30.00 - Acute cystitis without hematuria (3) Sepsis Current Visit: Yes Status: Acute Assessment and plan: Patient is a 43-year-old male who presents with urosepsis. Preliminary blood cultures are positive for gram-positive cocci, and patient is receiving IV Cipro. Currently, vital signs are stable and afebrile. White blood cell count is reassuring, and renal function is improving. We will plan to await final culture and sensitivity report before patient may be considered for discharge. Urology CN:[facility] Consult date: 10/17/18 Reason for consult Urology: Hydronephrosis (left ureteral stone; UTI) Requesting physician: Adriana Nicole History of present illness: Patient is a 43-year-old male who presents with a 5 x 7 mm left ureteral stone, hydronephrosis and urinary tract infection. Patient initially presented to the emergency department with a 2 day history of severe left-sided flank pain with radiation to the groin and left testicle. Patient reports pain became so severe that he had to call 911 for EMS transfer to the hospital. Patient also experienced dysuria, fever, chills, nausea and vomiting. Patient has a long- standing history of nephrolithiasis and has undergone ureteroscopy as well as ESWL procedure. Patient most recently had a ureteroscopic stone extraction with stent placement in 2016, and he reports recovering well from that procedure. Patient has a known family history of renal stones through his mother. Currently, patient is sitting upright in bed in no apparent distress, and he denies any fever, chills, flank pain or gross hematuria. Past Med Surg Social Fam HX - Past Medical History Medical history: kidney stones, other Additional medical history: psoriasis, Psychiatric history: depression - Past Surgical History Surgical History: vasectomy Additional surgical history: lithotripsy - Social History Smoking Status: Current every day smoker Smokeless Tobacco Status: Yes Alcohol use: none Drug use: none - Family History Grandfather Living Status: Hx Family Cardiac Disorders: Yes Medications and Allergies No Known Home Drugs 10/16/18 [History] Allergy/AdvReac Type Severity Reaction Status Date / Time No Known Allergies Allergy Verified 05/13/15 06:48 Review of Systems - Constitutional no chills, no fatigue, no fever(s) - EENT Nose, mouth and throat: no dizziness, no headache(s) - Cardiovascular no chest pain, no diaphoresis - Respiratory no cough, no dyspnea - Gastrointestinal abdominal pain, nausea, no vomiting - Genitourinary flank pain, no difficulty urinating, no dysuria, no hematuria, no urinary frequency, no urinary hesitancy, no urinary incontinence, no urinary urgency - Musculoskeletal back pain, no muscle weakness - Integumentary no erythema, no rash - Neurological no confusion, no sensory deficit - Psychiatric no anxiety, no confusion - Hematologic/Lymphatic no easy bleeding, no easy bruising - Allergic/Immunologic no throat swelling, no wheezing Exam Initial Vital Signs Temp Pulse Resp BP Pulse Ox 100.6 F H 109 20 136/73 96 10/16/18 09:44 10/16/18 09:44 10/16/18 09:44 10/16/18 09:44 10/16/18 09:44 - General physical appearance Present: well developed, no distress, no pain - Eyes Present: PERRL, normal ocular movement - ENT Present: normal nares, no hearing loss, no congestion - Neck Present: no masses, trachea midline, no lymphadenopathy - Respiratory Present: normal respiratory effort - Cardiovascular Cardiovascular exam IM: RRR - Abdomen Abdomen: Present: soft, non tender. Absent: distended - Genitourinary other (No CVAT) - Integumentary Present: no rash, no abnormal pigmentation - Neurologic Present: normal coordination - Musculoskeletal Present: other (Normal posture) Urology Results - Labs 10/17/18 03:53 10/17/18 03:53 Abnormal lab results WBC 12.0 K/mcL (4.3-11.1) H 10/17/18 03:53 RBC 4.04 M/mcL (4.19-5.50) L 10/17/18 03:53 Hgb 12.2 g/dL (12.9-16.9) L D 10/17/18 03:53 Hct 36.6 % (37.5-50.1) L 10/17/18 03:53 MPV 8.8 fL (9.4-12.4) L 10/16/18 10:39 20.7 K/mcL (1.6-8.9) H 10/16/18 10:39 1.6 K/mcL (0.0-1.3) H 10/16/18 10:39 Sodium 131 mEq/L (136-145) L 10/17/18 03:53 Chloride 94 mEq/L (98-107) L 10/16/18 10:39 Carbon Dioxide 20 mEq/L (23-29) L 10/17/18 03:53 BUN 28 mg/dL (6-20) H 10/17/18 03:53 1.67 mg/dL (0.70-1.30) H 10/17/18 03:53 Est GFR ( Amer) 54 (> 60) L 10/17/18 03:53 Est GFR (Non-Af Amer) 45 (> 60) L 10/17/18 03:53 Glucose 110 mg/dL (70-105) H 10/17/18 03:53 278 (280-300) L 10/17/18 03:53 Calcium 8.0 mg/dL (8.6-10.3) L 10/17/18 03:53 0.3 mg/dL (0.0-0.2) H 10/16/18 10:39 3.8 g/dL (2.4-3.5) H 10/16/18 10:39 1.0 (1.1-2.2) L 10/16/18 10:39 Turbid (Clear) A 10/16/18 10:28 Ur Specific [place] < 1.005 (1.010-1.025) L 10/16/18 10:28 100 mg/dL (Neg-Trace) H 10/16/18 10:28 Large (Negative) H 10/16/18 10:28 Ur Leukocyte Esterase Large (Negative) H 10/16/18 10:28 TNTC per hpf (0-3) H 10/16/18 10:28 Ur Squamous Epith Cells Many per lpf (None-Few) H 10/16/18 10:28 Amorphous Sediment Moderate (Few) H 10/16/18 10:28 Moderate per hpf (None-Few) H 10/16/18 10:28 Ur Culture Indicated? YES (NO) A 10/16/18 10:28 Staphylococcus sp PCR DETECTED (Not Detect) A 10/16/18 11:25 Staph aureus (PCR) DETECTED (Not Detect) A 10/16/18 11:25 Diabetes panel 10/17/18 Range/Units 03:53 Sodium 131 L (136-145) mEq/L Potassium 4.2 (3.5-5.1) mEq/L Chloride 104 (98-107) mEq/L Carbon Dioxide 20 L (23-29) mEq/L BUN 28 H (6-20) mg/dL Creatinine 1.67 H (0.70-1.30) mg/dL Glucose 110 H (70-105) mg/dL Calcium 8.0 L (8.6-10.3) mg/dL Calcium panel 10/17/18 Range/Units 03:53 Calcium 8.0 L (8.6-10.3) mg/dL Pituitary panel 10/17/18 Range/Units 03:53 Sodium 131 L (136-145) mEq/L Potassium 4.2 (3.5-5.1) mEq/L Chloride 104 (98-107) mEq/L Carbon Dioxide 20 L (23-29) mEq/L BUN 28 H (6-20) mg/dL Creatinine 1.67 H (0.70-1.30) mg/dL Glucose 110 H (70-105) mg/dL Calcium 8.0 L (8.6-10.3) mg/dL Adrenal panel 10/17/18 Range/Units 03:53 Sodium 131 L (136-145) mEq/L Potassium 4.2 (3.5-5.1) mEq/L Chloride 104 (98-107) mEq/L Carbon Dioxide 20 L (23-29) mEq/L BUN 28 H (6-20) mg/dL Creatinine 1.67 H (0.70-1.30) mg/dL Glucose 110 H (70-105) mg/dL Calcium 8.0 L (8.6-10.3) mg/dL All other labs normal. - Imaging CT scan - abdomen: report reviewed CT scan - pelvis: report reviewed Consult Discharge Plan - Plan Referrals: Solitario Pendleton DO [Primary Care Provider] - <Camacho Cramer - Last Filed: 10/17/18 15:31> Date of Encounter: 10/17/18 - Assessment and Plan (1) Left ureteral calculus Current Visit: Yes Status: Acute (2) UTI (urinary tract infection) Current Visit: Yes Status: Acute Qualifiers: Urinary tract infection type: acute cystitis Hematuria presence: without hematuria Qualified Code(s): N30.00 - Acute cystitis without hematuria (3) Ureteral stone with hydronephrosis Current Visit: Yes Status: Acute Assessment and plan: Patient seen and examined independently. History, review of systems and physical exam findings of PA verified. All pertinent imaging reviewed. I am in agreement with the assessment and plan as outlined by our Urologic Surgery Department Physician Drywaller, Sandra. Discussed findings with patient and options for management. Discussed risks benefits alternatives of urinary diversion. Plan: Urinary diversion via stent placement and operating theater today. Exam Initial Vital Signs Temp Pulse Resp BP Pulse Ox 100.6 F H 109 20 136/73 96 10/16/18 09:44 10/16/18 09:44 10/16/18 09:44 10/16/18 09:44 10/16/18 09:44 Urology Results - Labs 10/17/18 03:53 10/17/18 03:53 Abnormal lab results WBC 12.0 K/mcL (4.3-11.1) H 10/17/18 03:53 RBC 4.04 M/mcL (4.19-5.50) L 10/17/18 03:53 Hgb 12.2 g/dL (12.9-16.9) L D 10/17/18 03:53 Hct 36.6 % (37.5-50.1) L 10/17/18 03:53 MPV 8.8 fL (9.4-12.4) L 10/16/18 10:39 20.7 K/mcL (1.6-8.9) H 10/16/18 10:39 1.6 K/mcL (0.0-1.3) H 10/16/18 10:39 Sodium 131 mEq/L (136-145) L 10/17/18 03:53 Chloride 94 mEq/L (98-107) L 10/16/18 10:39 Carbon Dioxide 20 mEq/L (23-29) L 10/17/18 03:53 BUN 28 mg/dL (6-20) H 10/17/18 03:53 1.67 mg/dL (0.70-1.30) H 10/17/18 03:53 Est GFR ( Amer) 54 (> 60) L 10/17/18 03:53 Est GFR (Non-Af Amer) 45 (> 60) L 10/17/18 03:53 Glucose 110 mg/dL (70-105) H 10/17/18 03:53 278 (280-300) L 10/17/18 03:53 Calcium 8.0 mg/dL (8.6-10.3) L 10/17/18 03:53 0.3 mg/dL (0.0-0.2) H 10/16/18 10:39 3.8 g/dL (2.4-3.5) H 10/16/18 10:39 1.0 (1.1-2.2) L 10/16/18 10:39 Turbid (Clear) A 10/16/18 10:28 Ur Specific [place] < 1.005 (1.010-1.025) L 10/16/18 10:28 100 mg/dL (Neg-Trace) H 10/16/18 10:28 Large (Negative) H 10/16/18 10:28 Ur Leukocyte Esterase Large (Negative) H 10/16/18 10:28 TNTC per hpf (0-3) H 10/16/18 10:28 Ur Squamous Epith Cells Many per lpf (None-Few) H 10/16/18 10:28 Amorphous Sediment Moderate (Few) H 10/16/18 10:28 Moderate per hpf (None-Few) H 10/16/18 10:28 Ur Culture Indicated? YES (NO) A 10/16/18 10:28 Staphylococcus sp PCR DETECTED (Not Detect) A 10/16/18 11:25 Staph aureus (PCR) DETECTED (Not Detect) A 10/16/18 11:25 Diabetes panel 10/17/18 Range/Units 03:53 Sodium 131 L (136-145) mEq/L Potassium 4.2 (3.5-5.1) mEq/L Chloride 104 (98-107) mEq/L Carbon Dioxide 20 L (23-29) mEq/L BUN 28 H (6-20) mg/dL Creatinine 1.67 H (0.70-1.30) mg/dL Glucose 110 H (70-105) mg/dL Calcium 8.0 L (8.6-10.3) mg/dL Calcium panel 10/17/18 Range/Units 03:53 Calcium 8.0 L (8.6-10.3) mg/dL Pituitary panel 10/17/18 Range/Units 03:53 Sodium 131 L (136-145) mEq/L Potassium 4.2 (3.5-5.1) mEq/L Chloride 104 (98-107) mEq/L Carbon Dioxide 20 L (23-29) mEq/L BUN 28 H (6-20) mg/dL Creatinine 1.67 H (0.70-1.30) mg/dL Glucose 110 H (70-105) mg/dL Calcium 8.0 L (8.6-10.3) mg/dL Adrenal panel 10/17/18 Range/Units 03:53 Sodium 131 L (136-145) mEq/L Potassium 4.2 (3.5-5.1) mEq/L Chloride 104 (98-107) mEq/L Carbon Dioxide 20 L (23-29) mEq/L BUN 28 H (6-20) mg/dL Creatinine 1.67 H (0.70-1.30) mg/dL Glucose 110 H (70-105) mg/dL Calcium 8.0 L (8.6-10.3) mg/dL All other labs normal.
[2018-10-17] MEDS ORDERED: Perflutren Lipid Microsphere 1.3 ML in 0.9 % Sodium Chloride 8.7 ML IVP ONE (15:09)
--- NOTE | 2018-10-17 16:48 | Urology - Consult Note ---
Date of Encounter: 10/17/18 Time of Encounter: 15:00 - Assessment and Plan (1) Ureteral stone with hydronephrosis Current Visit: Yes Status: Acute Assessment and plan: Secondary to distal left ureteral calculus. Urgent urinary diversion via stent placement is most appropriate given active UTI. We will require staged surgical address of stone once UTI is resolved. Plan: Urinary diversion by stent placement. (2) Left ureteral calculus Current Visit: Yes Status: Acute Assessment and plan: Discussed need for urinary diversion in setting of active UTI and obstruction with [place]. Plan: Urinary diversion by stent placement first cased in a.m. 10/17/2018. (3) UTI (urinary tract infection) Current Visit: Yes Status: Acute Assessment and plan: WBC 22 and low-grade fevers. He was incidentally stable with normal lactate. Discussed with patient indication for urgent urinary diversion of obstructing left ureteral calculus. Plan: Cystoscopy with stent placement. Antibiotic management as per primary service Qualifiers: Urinary tract infection type: acute cystitis Hematuria presence: without hematuria Qualified Code(s): N30.00 - Acute cystitis without hematuria Urology CN:HPI Consult date: 10/17/18 Requesting physician: Sergio Fallon History of present illness: Mr. Anderson is a 43 year old male with a past medical history of nephrolithiasis and a past surgical history of a right ureteral stent (2015) that presents for left-sided flank pain and fever. Patient says that he has been experiencing these symptoms for the past 2 days. He describes the pain radiating from his left flank all the way down to his left testicle. Patient says the pain is constant. Says it is sharp in nature. He also admits to a subjective fever for the past 2 days. He admits to dysuria but denies any geeta hematuria. Decreased urine output. He says that these symptoms are similar to the kidney stone that he had a couple years ago. He denies any nausea or vomiting. He says that he has been able to tolerate by mouth intake at home. Patient denies any family history of kidney stones. He says that he has been drinking about 8 sodas a day and drinks very little water. Upon presentation to the ED, patient presented with leukocytosis of 23.1, febrile at 100.6, and was tachycardic with a pulse rate of 109. Blood pressure was normotensive. Patient did also present with an elevated creatinine of 2.05 with a baseline of 1.49. Lactic acid levels were w ithin normal limits. Liver enzymes within normal limits. Lipase was normal. UA showed large blood with positive leukocyte Estrace. CT of the abdomen showed a 7 x 5 mm obstructing calculus in the distal left ureter in the mid pelvis with mild hydronephrosis and hydroureter. Patient was subsequently started on IV Rocephin for suspected UTI. Consult was placed to urology for the obstructing renal calculus. Past Med Surg Social Fam HX - Past Medical History Medical history: kidney stones, other Additional medical history: psoriasis, Psychiatric history: depression - Past Surgical History Surgical History: vasectomy Additional surgical history: lithotripsy - Social History Smoking Status: Current every day smoker Smokeless Tobacco Status: Yes Alcohol use: none Drug use: none - Family History Grandfather Living Status: Hx Family Cardiac Disorders: Yes Medications and Allergies No Known Home Drugs 10/16/18 [History] Allergy/AdvReac Type Severity Reaction Status Date / Time No Known Allergies Allergy Verified 05/13/15 06:48 Exam Initial Vital Signs Temp Pulse Resp BP Pulse Ox 100.6 F H 109 20 136/73 96 10/16/18 09:44 10/16/18 09:44 10/16/18 09:44 10/16/18 09:44 10/16/18 09:44 Urology Results - Labs 10/17/18 03:53 10/17/18 03:53 Abnormal lab results WBC 12.0 K/mcL (4.3-11.1) H 10/17/18 03:53 RBC 4.04 M/mcL (4.19-5.50) L 10/17/18 03:53 Hgb 12.2 g/dL (12.9-16.9) L D 10/17/18 03:53 Hct 36.6 % (37.5-50.1) L 10/17/18 03:53 MPV 8.8 fL (9.4-12.4) L 10/16/18 10:39 20.7 K/mcL (1.6-8.9) H 10/16/18 10:39 1.6 K/mcL (0.0-1.3) H 10/16/18 10:39 Sodium 131 mEq/L (136-145) L 10/17/18 03:53 Chloride 94 mEq/L (98-107) L 10/16/18 10:39 Carbon Dioxide 20 mEq/L (23-29) L 10/17/18 03:53 BUN 28 mg/dL (6-20) H 10/17/18 03:53 1.67 mg/dL (0.70-1.30) H 10/17/18 03:53 Est GFR ( Amer) 54 (> 60) L 10/17/18 03:53 Est GFR (Non-Af Amer) 45 (> 60) L 10/17/18 03:53 Glucose 110 mg/dL (70-105) H 10/17/18 03:53 278 (280-300) L 10/17/18 03:53 Calcium 8.0 mg/dL (8.6-10.3) L 10/17/18 03:53 0.3 mg/dL (0.0-0.2) H 10/16/18 10:39 3.8 g/dL (2.4-3.5) H 10/16/18 10:39 1.0 (1.1-2.2) L 10/16/18 10:39 Turbid (Clear) A 10/16/18 10:28 Ur Specific [place] < 1.005 (1.010-1.025) L 10/16/18 10:28 100 mg/dL (Neg-Trace) H 10/16/18 10:28 Large (Negative) H 10/16/18 10:28 Ur Leukocyte Esterase Large (Negative) H 10/16/18 10:28 TNTC per hpf (0-3) H 10/16/18 10:28 Ur Squamous Epith Cells Many per lpf (None-Few) H 10/16/18 10:28 Amorphous Sediment Moderate (Few) H 10/16/18 10:28 Moderate per hpf (None-Few) H 10/16/18 10:28 Ur Culture Indicated? YES (NO) A 10/16/18 10:28 Staphylococcus sp PCR DETECTED (Not Detect) A 10/16/18 11:25 Staph aureus (PCR) DETECTED (Not Detect) A 10/16/18 11:25 Diabetes panel 10/17/18 Range/Units 03:53 Sodium 131 L (136-145) mEq/L Potassium 4.2 (3.5-5.1) mEq/L Chloride 104 (98-107) mEq/L Carbon Dioxide 20 L (23-29) mEq/L BUN 28 H (6-20) mg/dL Creatinine 1.67 H (0.70-1.30) mg/dL Glucose 110 H (70-105) mg/dL Calcium 8.0 L (8.6-10.3) mg/dL Calcium panel 10/17/18 Range/Units 03:53 Calcium 8.0 L (8.6-10.3) mg/dL Pituitary panel 10/17/18 Range/Units 03:53 Sodium 131 L (136-145) mEq/L Potassium 4.2 (3.5-5.1) mEq/L Chloride 104 (98-107) mEq/L Carbon Dioxide 20 L (23-29) mEq/L BUN 28 H (6-20) mg/dL Creatinine 1.67 H (0.70-1.30) mg/dL Glucose 110 H (70-105) mg/dL Calcium 8.0 L (8.6-10.3) mg/dL Adrenal panel 10/17/18 Range/Units 03:53 Sodium 131 L (136-145) mEq/L Potassium 4.2 (3.5-5.1) mEq/L Chloride 104 (98-107) mEq/L Carbon Dioxide 20 L (23-29) mEq/L BUN 28 H (6-20) mg/dL Creatinine 1.67 H (0.70-1.30) mg/dL Glucose 110 H (70-105) mg/dL Calcium 8.0 L (8.6-10.3) mg/dL All other labs normal. Consult Discharge Plan - Plan Referrals: Solitario Pendleton DO [Primary Care Provider] -
[2018-10-17] MEDS: OXYCODONE Oral CONC 10 MG/0.5 ML ORAL.SYG SL PRN (18:31)
[2018-10-18] MEDS: OXYCODONE Oral CONC 10 MG/0.5 ML ORAL.SYG SL PRN ×4 (00:57→20:31)
[2018-10-18 02:35] LABS: Hematocrit 38.1 % (37.5-50.1); Hemoglobin 12.8 g/dL (12.9-16.9); Mean Corpuscular HGB Conc 33.6 g/dL (31.6-35.5); Mean Corpuscular Hemoglobin 29.8 pg (28.0-33.3); Mean Corpuscular Volume 88.6 fL (83.0-100.0); Mean Platelet Volume 9.7 fL (9.4-12.4); Platelet Count 220 K/mcL (140-400); Red Cell Distribution Width 12.9 % (11.5-14.5)
[2018-10-18 02:54] LABS: BUN/Creatinine Ratio 20 (6-26); Blood Urea Nitrogen 29 mg/dL (6-20); Calcium 8.5 mg/dL (8.6-10.3); Carbon Dioxide 22 mEq/L (23-29); Chloride 102 mEq/L (98-107); Glucose 159 mg/dL (70-105); Osmolality,Calculated 289 (280-300); Potassium 4.6 mEq/L (3.5-5.1); Sodium 135 mEq/L (136-145); eGFR For African Americans > 60 (> 60); eGFR For Non-African Americans 52 (> 60)
--- NOTE | 2018-10-18 10:10 | Urology Progress Note ---
Date of Encounter: 10/18/18 Time of Encounter: 10:07 - Assessment and Plan (1) Ureteral stone with hydronephrosis Current Visit: Yes Status: Acute Assessment and plan: Diverted by stent placement on 10/17/2018. Plan: My office will arrange for outpatient visit for staged definitive address of ureteral calculus once active infection resolved. (2) Left ureteral calculus Current Visit: Yes Status: Acute Assessment and plan: Will require definitive surgical address in near future post resolution of UTI. Plan: My office will arrange outpatient follow-up. (3) UTI (urinary tract infection) Current Visit: Yes Status: Acute Assessment and plan: Culture pending. Antibiotic management via primary service. Qualifiers: Urinary tract infection type: acute cystitis Hematuria presence: without hematuria Qualified Code(s): N30.00 - Acute cystitis without hematuria Progress Note Subjective: no new complaints Objective Initial Vital Signs Temp Pulse Resp BP Pulse Ox 100.6 F H 109 20 136/73 96 10/16/18 09:44 10/16/18 09:44 10/16/18 09:44 10/16/18 09:44 10/16/18 09:44 - General physical appearance Present: no distress - Respiratory Present: normal respiratory effort - Musculoskeletal Present: normal posture - Psychiatric Present: oriented to time, oriented to person, oriented to place - Labs 10/18/18 01:52 10/18/18 01:52 Diabetes panel 10/18/18 Range/Units 01:52 Sodium 135 L (136-145) mEq/L Potassium 4.6 (3.5-5.1) mEq/L Chloride 102 (98-107) mEq/L Carbon Dioxide 22 L (23-29) mEq/L BUN 29 H (6-20) mg/dL Creatinine 1.46 H (0.70-1.30) mg/dL Glucose 159 H (70-105) mg/dL Calcium 8.5 L (8.6-10.3) mg/dL Calcium panel 10/18/18 Range/Units 01:52 Calcium 8.5 L (8.6-10.3) mg/dL Pituitary panel 10/18/18 Range/Units 01:52 Sodium 135 L (136-145) mEq/L Potassium 4.6 (3.5-5.1) mEq/L Chloride 102 (98-107) mEq/L Carbon Dioxide 22 L (23-29) mEq/L BUN 29 H (6-20) mg/dL Creatinine 1.46 H (0.70-1.30) mg/dL Glucose 159 H (70-105) mg/dL Calcium 8.5 L (8.6-10.3) mg/dL Adrenal panel 10/18/18 Range/Units 01:52 Sodium 135 L (136-145) mEq/L Potassium 4.6 (3.5-5.1) mEq/L Chloride 102 (98-107) mEq/L Carbon Dioxide 22 L (23-29) mEq/L BUN 29 H (6-20) mg/dL Creatinine 1.46 H (0.70-1.30) mg/dL Glucose 159 H (70-105) mg/dL Calcium 8.5 L (8.6-10.3) mg/dL Consult Discharge Plan - Plan Referrals: Solitario Pendleton DO [Primary Care Provider] -
--- NOTE | 2018-10-18 16:26 | Internal Med Progress Note ---
Hospitalist Progress Note - Encounter Date of Encounter: 10/18/18 Time of Encounter: 11:30 - Subjective Interval History: Mr Anderson is currently admitted for acute MSSA bacteremia and UTI with stone obstruction. He is s/p stent. He remains moderate to high risk due to potential for worsening clinical status. Mr Anderson is doing somewhat better with pain. No fever or chills. No CP or SOB. Tolerating IV Ancef. Denies IV drugs or recent tattoos. He says he cuts himself on his hands a lot at work. No GI issues. - Exam Vitals: Temp Pulse Resp BP Pulse Ox 98.7 F 72 18 110/65 96 10/18/18 11:22 10/18/18 11:22 10/18/18 11:22 10/18/18 11:22 10/18/18 11:22 Exam: Gen: Comfortable in bed. Head: NC, atraumatic EENT: Mucus membranes dry. No lesion. Neck: Supple. Heart: regular. Not tachycardic. No murmur. Lungs: Clear bilaterally Abd soft and nontender Ext: No edema noted. Skin: No rash Neuro: Alert and oriented. No focal deficit. - Assessment and Plan (1) Sepsis Current Visit: Yes Status: Acute Assessment and Plan: Pt admitted with sepsis and urinary obstruction from stone. Blood and urine cultures grew MSSA. Currently on IV Ancef. Echo with no significant vegetation. Repeat blood cx negative thus far. Anticipate will need IV abx at discharge. (2) Left ureteral calculus Current Visit: Yes Status: Acute Assessment and Plan: s/p stent placement. (3) UTI (urinary tract infection) Current Visit: Yes Status: Acute Assessment and Plan: Due to MSSA. Currently on IV Ancef and clinically improving. (4) Hyponatremia Current Visit: Yes Status: Acute Assessment and Plan: Improving. Recheck in AM. (5) ADRIENNE (acute kidney injury) Current Visit: Yes Status: Acute Assessment and Plan: Due to obstruction most likely. Slowly improving with treatment. (6) Tobacco abuse Current Visit: Yes Status: Chronic Assessment and Plan: Cessation counselling. (7) Morbid obesity with BMI of 40.0-44.9, adult Current Visit: Yes Status: Chronic Assessment and Plan: Chronic issue DVT Prophylaxis: Lovenox - Time Spent with Patient Total time spent is greater than 50% in coordination of care (as documented) at patient's floor/unit and/or counseling patient: Internal Medicine: Result - Labs CBC & Chem 7: 10/18/18 01:52 10/18/18 01:52 Labs: Short CBC 10/18/18 Range/Units 01:52 WBC 13.0 H (4.3-11.1) K/mcL Hgb 12.8 L (12.9-16.9) g/dL Hct 38.1 (37.5-50.1) % Plt Count 220 (140-400) K/mcL BMP 10/18/18 01:52 Sodium 135 L Potassium 4.6 Chloride 102 Carbon Dioxide 22 L BUN 29 H Creatinine 1.46 H Glucose 159 H Calcium 8.5 L - Impressions Impressions Echocardiogram 10/17/18 11:21 Impressions: LVEF 60%. Normal LV chamber size, wall thickness and function. Mild left ventricular diastolic dysfunction. Normal right ventricular structure and function. Unable to estimate RVSP due to lack of TR jet. No obvious significant valvular dysfunction. Left Ventricular Wall Motion: Rest Echo Findings All wall segments showed normal motion. Findings: Study Quality * Technically adequate exam. ECG Findings * Normal sinus rhythm. Left Ventricle * LVEF 60%. * Normal LV chamber size, wall thickness and function. * Mild left ventricular diastolic dysfunction. Right Ventricle * Normal right ventricular structure and function. Left Atrium * Mildly dilated left atrium. Right Atrium * Mildly dilated right atrium. Interatrial Septum * No evidence of PFO by color Doppler. Aortic Valve * Aortic valve not well visualized. * No aortic regurgitation. * No aortic stenosis. Mitral Valve * Normal mitral valve structure and function. * No mitral regurgitation. * No mitral stenosis. Tricuspid Valve * Normal tricuspid valve structure and function. * No tricuspid regurgitation. * Unable to estimate RVSP due to lack of TR jet. Pulmonic Valve * Pulmonic valve not well visualized. * No pulmonic regurgitation. Aorta * Normally sized aortic root. Pericardium * The pericardium appears normal. IVC * Normal IVC dimensions and inspiratory collapse. Pulmonary Artery * Grossly normal visualized portions of the main pulmonary artery. Consult Discharge Plan - Plan Referrals: Solitario Pendleton DO [Primary Care Provider] - (1) Sepsis Qualifiers: Sepsis type: methicillin susceptible Staphylococcus aureus Qualified Code(s): A41.01 - Sepsis due to Methicillin susceptible Staphylococcus aureus (3) UTI (urinary tract infection) Qualifiers: Urinary tract infection type: acute cystitis Hematuria presence: without hematuria Qualified Code(s): N30.00 - Acute cystitis without hematuria
[2018-10-19] MEDS: *HR* Enoxaparin 40 MG/0.4 ML SYRINGE SQ SCH (06:07)
[2018-10-19] MEDS: OXYCODONE Oral CONC 10 MG/0.5 ML ORAL.SYG SL PRN ×3 (06:10→20:01)
--- NOTE | 2018-10-19 08:01 | Internal Med Progress Note ---
Hospitalist Progress Note - Encounter Date of Encounter: 10/19/18 Time of Encounter: 08:49 - Subjective Interval History: Mr Anderson is currently admitted for acute MSSA bacteremia and UTI. He remains moderate to high risk due to potential for worsening clinical status. Mr Anderson feels OK. No fever or chills. No CP or SOB. No GI issues. He is tolerating IV abx without issue. 1/2 blood cx positive from second set. Repeat ordered this AM. - Exam Vitals: Temp Pulse Resp BP Pulse Ox 98.2 F 71 18 132/69 96 10/19/18 07:30 10/19/18 07:30 10/19/18 07:30 10/19/18 07:30 10/19/18 07:30 Exam: Gen: Comfortable in bed. Pleasant. Head: NC, atraumatic EENT: Mucus membranes dry. No lesion. Neck: Supple. No adenopathy. Heart: Regular rate and rhythm. ? faint murmur heard today. Lungs: Clear bilaterally with good effort. Abd: Soft. Nontender. No mass. Ext: No edema noted. Pulses palpable. Skin: No rash noted. Neuro: Alert and oriented. No focal deficit. - Assessment and Plan (1) Sepsis Current Visit: Yes Status: Acute Assessment and Plan: Pt admitted with sepsis and urinary obstruction from stone. Blood and urine cultures grew MSSA. Currently on IV Ancef. 1/2 blood cultures positive from second set - repeat ordered today. TTE with no vegetation - ? if needs ROCIO. Kidney stone still present - ? if needs removed earlier. Will make NPO tonight for any possible procedures tomorrow - pt aware. (2) Left ureteral calculus Current Visit: Yes Status: Acute Assessment and Plan: s/p stent placement. May need removed earlier for source control (3) UTI (urinary tract infection) Current Visit: Yes Status: Acute Assessment and Plan: Due to MSSA. WBC normal today. (4) Hyponatremia Current Visit: Yes Status: Acute Assessment and Plan: Resolving. (5) ADRIENNE (acute kidney injury) Current Visit: Yes Status: Acute Assessment and Plan: Resolving. (6) Tobacco abuse Current Visit: Yes Status: Chronic Assessment and Plan: Cessation counselling. (7) Morbid obesity with BMI of 40.0-44.9, adult Current Visit: Yes Status: Chronic Assessment and Plan: Chronic issue - Time Spent with Patient Total time spent is greater than 50% in coordination of care (as documented) at patient's floor/unit and/or counseling patient: Internal Medicine: Result - Labs CBC & Chem 7: 10/19/18 08:09 10/18/18 01:52 - Impressions Impressions Echocardiogram 10/17/18 11:21 Impressions: LVEF 60%. Normal LV chamber size, wall thickness and function. Mild left ventricular diastolic dysfunction. Normal right ventricular structure and function. Unable to estimate RVSP due to lack of TR jet. No obvious significant valvular dysfunction. Left Ventricular Wall Motion: Rest Echo Findings All wall segments showed normal motion. Findings: Study Quality * Technically adequate exam. ECG Findings * Normal sinus rhythm. Left Ventricle * LVEF 60%. * Normal LV chamber size, wall thickness and function. * Mild left ventricular diastolic dysfunction. Right Ventricle * Normal right ventricular structure and function. Left Atrium * Mildly dilated left atrium. Right Atrium * Mildly dilated right atrium. Interatrial Septum * No evidence of PFO by color Doppler. Aortic Valve * Aortic valve not well visualized. * No aortic regurgitation. * No aortic stenosis. Mitral Valve * Normal mitral valve structure and function. * No mitral regurgitation. * No mitral stenosis. Tricuspid Valve * Normal tricuspid valve structure and function. * No tricuspid regurgitation. * Unable to estimate RVSP due to lack of TR jet. Pulmonic Valve * Pulmonic valve not well visualized. * No pulmonic regurgitation. Aorta * Normally sized aortic root. Pericardium * The pericardium appears normal. IVC * Normal IVC dimensions and inspiratory collapse. Pulmonary Artery * Grossly normal visualized portions of the main pulmonary artery. Consult Discharge Plan - Plan Referrals: Solitario Pendleton DO [Primary Care Provider] - (1) Sepsis Qualifiers: Sepsis type: methicillin susceptible Staphylococcus aureus Qualified Code(s): A41.01 - Sepsis due to Methicillin susceptible Staphylococcus aureus (3) UTI (urinary tract infection) Qualifiers: Urinary tract infection type: acute cystitis Hematuria presence: without hematuria Qualified Code(s): N30.00 - Acute cystitis without hematuria
[2018-10-19 08:35] LABS: Hematocrit 37.5 % (37.5-50.1); Hemoglobin 12.6 g/dL (12.9-16.9); Mean Corpuscular HGB Conc 33.6 g/dL (31.6-35.5); Mean Corpuscular Volume 89.3 fL (83.0-100.0); Mean Platelet Volume 9.2 fL (9.4-12.4); Platelet Count 255 K/mcL (140-400); White Blood Count 10.8 K/mcL (4.3-11.1)
[2018-10-19 08:57] LABS: Alanine Aminotransferase 12 Units/L (7-52); Albumin 2.9 g/dL (3.5-5.7); Albumin/Globulin Ratio 0.9 (1.1-2.2); Alkaline Phosphatase 48 Units/L (34-104); Aspartate Amino Transferase 11 Units/L (13-39); BUN/Creatinine Ratio 18 (6-26); Bilirubin,Total 0.5 mg/dL (0.3-1.0); Blood Urea Nitrogen 21 mg/dL (6-20); Calcium 8.3 mg/dL (8.6-10.3); Carbon Dioxide 26 mEq/L (23-29); Chloride 103 mEq/L (98-107); Globulin 3.1 g/dL (2.4-3.5); Glucose 91 mg/dL (70-105); Magnesium 1.6 mg/dL (1.6-2.6); Osmolality,Calculated 285 (280-300); Potassium 3.8 mEq/L (3.5-5.1); Sodium 136 mEq/L (136-145); eGFR For African Americans > 60 (> 60); eGFR For Non-African Americans > 60 (> 60)
[2018-10-19] MEDS ORDERED: OXYCODONE Oral CONC 10 MG/0.5 ML ORAL.SYG SL ONE (14:58)
[2018-10-19 17:38] LABS: Acinetobacter baumannii by PCR Not Detected (Not Detect); Candida albicans by PCR Not Detected (Not Detect); Candida glabrata by PCR Not Detected (Not Detect); Candida krusei by PCR Not Detected (Not Detect); Candida parapsilosis by PCR Not Detected (Not Detect); Candida tropicalis by PCR Not Detected (Not Detect); Enterobacter cloacae Cmplx PCR Not Detected (Not Detect); Enterobacteriaceae by PCR Not Detected (Not Detect); Enterococcus by PCR Not Detected (Not Detect); Escherichia coli by PCR Not Detected (Not Detect); Klebsiella oxytoca by PCR Not Detected (Not Detect); Klebsiella pneumoniae by PCR Not Detected (Not Detect); Proteus by PCR Not Detected (Not Detect); Pseudomonas aeruginosa by PCR Not Detected (Not Detect); Serratia marcescens by PCR Not Detected (Not Detect); Staphylococcus aureus by PCR DETECTED (Not Detect); Staphylococcus by PCR DETECTED (Not Detect); Streptococcus agalactiae(B)PCR Not Detected (Not Detect); Streptococcus by PCR Not Detected (Not Detect); Streptococcus pneumoniae PCR Not Detected (Not Detect); Streptococcus pyogenes (A) PCR Not Detected (Not Detect); blaKPC Carbapenem-Resist Gene Not Detected (Not Detect); mecA Methicillin-Resist Gene Not Detected (Not Detect); vanA/B Vancomycin-Resist Genes Not Detected (Not Detect)
[2018-10-20 01:43] LABS: Hematocrit 37.3 % (37.5-50.1); Hemoglobin 12.4 g/dL (12.9-16.9); Mean Corpuscular HGB Conc 33.2 g/dL (31.6-35.5); Mean Corpuscular Hemoglobin 29.8 pg (28.0-33.3); Mean Corpuscular Volume 89.7 fL (83.0-100.0); Mean Platelet Volume 8.9 fL (9.4-12.4); Platelet Count 274 K/mcL (140-400); Red Blood Count 4.16 M/mcL (4.19-5.50); Red Cell Distribution Width 12.9 % (11.5-14.5); White Blood Count 10.3 K/mcL (4.3-11.1)
[2018-10-20 02:06] LABS: BUN/Creatinine Ratio 13 (6-26); Blood Urea Nitrogen 16 mg/dL (6-20); Calcium 8.1 mg/dL (8.6-10.3); Carbon Dioxide 26 mEq/L (23-29); Chloride 100 mEq/L (98-107); Glucose 101 mg/dL (70-105); Magnesium 1.6 mg/dL (1.6-2.6); Osmolality,Calculated 281 (280-300); Potassium 3.9 mEq/L (3.5-5.1); Sodium 135 mEq/L (136-145); eGFR For African Americans > 60 (> 60); eGFR For Non-African Americans > 60 (> 60)
[2018-10-20] MEDS: *HR* Enoxaparin 40 MG/0.4 ML SYRINGE SQ SCH (06:13)
[2018-10-20] MEDS: OXYCODONE Oral CONC 10 MG/0.5 ML ORAL.SYG SL PRN ×2 (06:17→20:42)
--- NOTE | 2018-10-20 08:40 | Infectious Disease Consult ---
Infectious Disease-Consult - Encounter Date/Time Date of Encounter: 10/20/18 Time of Encounter: 09:00 - Data of Consult Patient: new to practice Reason for consult: MSSA Bacteremia Consult date: 10/20/18 Requesting Physician: Sergio Fallon DO Primary Care Provider: Bimal Pendleton DO - HPI HPI: Mr. Anderson is a 43yo man who presented to [facility] on 10/16/18 and was admitted for sepsis secondary to urinary tract infection with nephrolithiasis. Infectious disease was consulted today, 10/20/18, for MSSA bacteremia. In short, Mr. Anderson is a 43-year-old gentleman with history of kidney stones and psoriasis who presented to the hospital on 10/16/18 due to pain in his left testicle which radiated into his lower abdomen and left back. The patient states that he had been feeling bad for approximately 2 days prior to his arrival, and he felt that it was probably a kidney stone. He says that he has had kidney stones in the past, and he said that it felt very similar to this. In the past he has been told to hydrate, so that was what he attempted to do, however he started to feel nauseated and was vomiting so he felt that he was no longer able to do this at home. In addition of this, the patient did experience fever, chills, sweats at home and did have one experience of dark black diarrhea which resolved after that one episode. Apart from the symptoms, the patient says that he had no other symptoms. He denies any blood in his urine at that time, possibly his urine or increased urinary frequency. The patient also denies any joint swelling or recent cuts. The patient is accompanied by his who mentions that he did have a cut on his finger was relatively deep a couple of weeks back which did swell quite significantly for about a week and heal on its own. At that time she was concerned that it was infected and may have required stitches however he was not seen by a physician. It seemed to resolve on its own. Review of systems was otherwise unremarkable. In the emergency department, the patient was found to have WBC 23.1, sodium 128, serum creatinine 2.05, and his urinalysis demonstrated WBC too numerous to count with positive leukocyte esterase and positive blood. The patient also met sepsis criteria at that time with a temperature of 100.6, heart rate 109, respiratory rate 20, WBC 23.1. CT of his abdomen and pelvis on 10/16/18 demonstrated a 7 x 5 mm obstructing calculi in the distal left ureter of the mid pelvis causing mild hydronephrosis and hydroureter. The patient did have blood cultures drawn as well as a urine culture which were positive for MSSA in both Urine and Blood x2. The patient had blood cultures drawn again on 10/17/18 which was again positive for gram-positive cocci 2, which appeared to be MSSA on PCR. Urology was consulted and recommended staged surgical management as an outpatient. The patient was admitted and initially placed on Rocephin and then ciprofloxacin, however he was transitioned to cefazolin following first positive cultures on 10/17. The patient did have a transthoracic echocardiogram on 10/17/18 which was negative for vegetative lesions on valves. - ROS Review of Systems: Constitutional: Admits to fevers, chills, weight loss, generalized fatigue Head/Neck: Admits to VYAS, denies neck stiffness EENT: Denies vision changes/blurriness, rhinorrhea, congestion, sore throat CVS: Denies chest pain, palpitations, OWEN, orthopnea, edema, PND Pulm: Denies SOB, cough, sputum, hemoptysis, wheezing GI: Admits to abdominal pain, flank pain, nausea and vomiting. Denies diarrhea, melena. : Denies dysuria, increased frequency, urgency, hematuria Heme: Denies ease of bleeding or bruising MSK: Denies joint pain, limited ROM Skin: Denies rashes, ulcers, color changes. Admits to chronic psoriasis Neuro: Denies VYAS, paresthesias, focal deficits, ataxia - Results CBC & Chem 7: 10/21/18 05:10 10/20/18 01:24 - Exam Vitals: Temp Pulse Resp BP Pulse Ox 98.8 F 68 17 133/86 98 10/20/18 07:41 10/20/18 07:41 10/20/18 07:41 10/20/18 07:41 10/20/18 07:41 Exam: Gen: Vitals noted. No acute distress. Eyes: anicteric sclerae, moist conjunctivae, no conjunctival hemorrhage; no lid- lag; Pupils equal and reactive to light HENT: Atraumatic; oropharynx clear with moist mucous membranes and no mucosal ulcerations; normal hard and soft palate Neck: Trachea midline; supple, no thyromegaly or lymphadenopathy Cardiac: RRR, no murmur, +S1/S2 Pulmonary: CTA bilaterally, no wheezes, rales or rhonchi, equal chest expansion Abdomen: soft, nontender, no guarding. No masses or hepatosplenomegaly MSK: ROM intact, no joint swelling noted Extremities: no BLE edema, nontender calf, no cyanosis or clubbing. Skin: Normal temperature, turgor and texture; no rash, ulcers or subcutaneous nodules. No sequela of infective endocarditis Neuro: moves all extremities, no focal deficits. Psych: Appropriate mood and behavior. A&Ox3 CeFAZolin Syr 2,000MG/20 ML [Ancef Syringe 2,000 MG/20 ML] 2,000 mg IVPB Q8H #21 syringe 10/21/18 [Rx] Oxycodone HCl/Acetaminophen [Percocet 5-325 mg Tablet] 1 each PO Q6H PRN 2 Days #8 tablet 10/21/18 [Rx] Tamsulosin [Flomax] 0.4 mg PO BID 30 Days #60 capsule 10/21/18 [Rx] 3 Allergy/AdvReac Type Severity Reaction Status Date / Time No Known Allergies Allergy Verified 10/17/18 19:58 - Assessment and Plan (1) Sepsis Status: Acute Sepsis, secondary to MSSA bacteremia in the setting of complicated UTI SIRS Criteria: WBC 23.1, temperature 100.6, heart rate 109, respiratory rate 20. Source, MSSA bacteremia. Complicated UTI Presented with urinary tract infection with left ureteral stone, likely urinary tract is seated from blood Patient does have history of recent deep laceration of finger while at work, p ossible source Patient does deny history of IV drug use or other illicit behaviors that may result in bacteremia TTE 10/17/18 negative for valvular vegetations, or new valvular dysfunction ROCIO attempted on 10/20/18 however patient was unable to tolerate procedure due to failed sedation Linares criteria One major (positive cultures 2) One minor (fever, RF unknown) Cultures 10/19/18 blood cultures NGTD 2 10/17/18 blood cultures GPC 2, PCR positive for MSSA 10/16/18 blood cultures MSSA positive 2 10/16/18 urine cultures MSSA positive Antibiotics Cefazolin 2g q8h Day 3 Recommendations -Continue Cefazolin at this time, duration of therapy depends on clinical course. Likely requires 4 weeks IV antibiotics for complicated MSSA bacteremia. -Recommend Midline placement on 10/21 if cultures remain negative -Recommend ROCIO under anesthesia. Communicated to Primary team -Will check RF in the AM -Management of renal calculi per urology Qualifiers: Sepsis type: sepsis due to unspecified organism Qualified Code(s): A41.9 - Sepsis, unspecified organism SNOMED Code(s): 41155332 (2) Bacteremia Status: Acute MSSA bacteremia, etiology unclear. Complicated It is likely that the patient's UTI is seeded from the bacteremia rather than the reverse We will recommend ROCIO under anesthesia to rule out infective endocarditis The patient will require 4 weeks of IV antibiotics for treatment Can have midline placed on 10/21/18 if cultures remain negative SNOMED Code(s): 2585247 (3) UTI (urinary tract infection) Status: Acute Urinary tract infection with MSSA secondary to seeding due to bacteremia Complicated due to nephrolithiasis Treatment with Ancef is appropriate Management of stones per urology Qualifiers: Urinary tract infection type: acute cystitis Hematuria presence: without hematuria Qualified Code(s): N30.00 - Acute cystitis without hematuria SNOMED Code(s): 91206243 (4) Kidney stone on left side Status: Acute Management per urology SNOMED Code(s): 00693897 Past Med Surg Social Fam HX - Past Medical History Medical history: kidney stones, other Additional medical history: psoriasis, Psychiatric history: depression - Past Surgical History Surgical History: vasectomy Additional surgical history: lithotripsy - Social History Smoking Status: Current every day smoker Smokeless Tobacco Status: Yes Alcohol use: none Drug use: none - Family History Grandfather Living Status: Hx Family Cardiac Disorders: Yes Consult Discharge Plan - Plan Instructions: Oxycodone/Acetaminophen (By mouth), Tamsulosin (By mouth) Referrals: Solitario Pendleton DO [Primary Care Provider] - 10/28/18 2:30 pm Camacho Cramer [Partnered Physician] - 11/04/18 8:30 am Shonda May MD [Partnered Physician] - (OFFICE WILL CALL WITH APPOINTMENT DATE AND TIME) Prescriptions: CeFAZolin Syr 2,000MG/20 ML [Ancef Syringe 2,000 MG/20 ML] 2,000 mg IVPB Q8H #21 syringe Tamsulosin [Flomax] 0.4 mg PO BID 30 Days #60 capsule Oxycodone HCl/Acetaminophen [Percocet 5-325 mg Tablet] 1 each PO Q6H PRN 2 Days #8 tablet PRN Reason: Pain - Attending Attestation I examined this patient and my medical decision-making was reviewed with the Resident Physician. I agree with the documented findings, disposition and treatment plan as described except to the extent set forth below. This is an addendum to original report dictated by resident physician. Please refer to resident's note for full detail. Agree with the resident's history of present illness, review of system and physical exam findings. Assessment and plan: 1.Sepsis 2.MSSA bacteremia 3.MSSA UTI/pyelonephritis 4.Nephrolithiasis on the left Recommendations -Continue Cefazolin at this time, duration of therapy depends on clinical course. Likely requires 4 weeks IV antibiotics for complicated MSSA bacteremia. -Recommend Midline placement on 10/21 if cultures remain negative -Recommend ROCIO under anesthesia. Communicated to Primary team -Will check RF in the AM -Management of renal calculi per urology
[2018-10-20] MEDS ORDERED: 0.9 % Sodium Chloride 500 ML IVC ONE (12:40)
[2018-10-20] MEDS ORDERED: Lidocaine Viscous Oral Soln 15 ML SOLUTION MM PRN (12:40)
--- NOTE | 2018-10-20 13:10 | Internal Med Progress Note ---
Hospitalist Progress Note - Encounter Date of Encounter: 10/20/18 Time of Encounter: 08:30 - Subjective Interval History: When seen today patient denied any back pain. He denied any dysuria or hematuria. Denied any chest pain or shortness of breath. Denied any fever or cough. Denied any nausea or vomiting. - Exam Vitals: Temp Pulse Resp BP Pulse Ox 97.7 F 70 20 138/66 96 10/20/18 12:54 10/20/18 12:54 10/20/18 12:54 10/20/18 12:54 10/20/18 12:54 Exam: GENERAL APPEARANCE: Well developed, well nourished, alert and cooperative, and appears to be in no acute distress. HEAD: normocephalic. EYES: vision is grossly intact. EARS: External auditory canals and tympanic membranes clear, hearing grossly intact. NOSE: No nasal discharge. THROAT: Oral cavity and pharynx normal. No inflammation, swelling, exudate, or lesions. Teeth and gingiva in good general condition. NECK: Neck supple, non-tender without lymphadenopathy, masses or thyromegaly. CARDIAC: Normal S1 and S2. No S3, S4 or murmurs. Rhythm is regular. There is no peripheral edema, cyanosis or pallor. Extremities are warm and well perfused. Capillary refill is less than 2 seconds. No carotid bruits. LUNGS: Clear to auscultation and percussion without rales, rhonchi, wheezing or diminished breath sounds. ABDOMEN: Positive bowel sounds. Soft, nondistended, nontender. No guarding or rebound. No masses. MUSKULOSKELETAL: Adequately aligned spine. ROM intact spine and extremities. No joint erythema or tenderness. Normal muscular development. Normal BACK: No CVA tenderness bilaterally. EXTREMITIES: No significant deformity or joint abnormality. No edema. Peripheral pulses intact. No varicosities. LOWER EXTREMITY: Examination of both feet reveals all toes to be normal in size and symmetry, normal range of motion, normal sensation with distal capillary filling of less than 2 seconds without tenderness, swelling, discoloration, nodules, weakness or deformity; SKIN: Skin normal color, texture and turgor with no lesions or eruptions. PSYCHIATRIC: The mental examination revealed the patient was oriented to person, place, and time. - Assessment and Plan (1) Left ureteral calculus Current Visit: Yes Status: Acute Assessment and Plan: S/P L ureter double-J stent placement 10/17/18. Pain is well controlled. Denies dysuria or hematuria. Plan: - Urology is recommending outpatient visit for ureteral calculus surgical intervention. - C/W regular diet. - C/W pain control. - Flomax 0.4 mg PO BID. (2) UTI (urinary tract infection) Current Visit: Yes Status: Acute Assessment and Plan: Patient complaining of dysuria but denying gross hematuria on presentation. Patient was also febrile on admission. UA was positive for leukocyte esterase, blood, and white blood cells. Patient was started on Rocephin in the ED. Urine cultures were positive for Staph A. Antibiotic changed to cefazolin. WBC is WNL. Currently asymptomatic. Plan: - Day #4 of cefazolin IV. (3) Severe sepsis Current Visit: Yes Status: Resolved Assessment and Plan: Admission labs: Leukocytosis of 23.1, tachycardia 109, and febrile with 100.6. Source of infection presumed UTI. Started on IV ABX in ED. WBC today is WNL. Blood cultures positive for Gram positive Cocci - Staph A. Repeat cultures positive for gram positive cocci. 3rd blood culture sets were taken. Echocardiogram showed no vegetations. Plan: - F/U with ROCIO of heart. - Repeat blood cultures pending. - C/W cefazolin. - continue to monitor vitals. (4) Bacteremia Current Visit: Yes Status: Acute Assessment and Plan: See plan for sepsis. (5) ADRIENNE (acute kidney injury) Current Visit: Yes Status: Resolved Assessment and Plan: Admission labs: Creatinine of 2.05 with a baseline of 1.49 and baseline GFR of 52. Likely secondary to hypovolemia in setting of UTI, obstructive calculus, sepsis, and dehydration. Renal function WNL today. Plan: - Renal dose medications. - Avoid nephrotoxins. (6) Tobacco abuse Current Visit: Yes Status: Chronic Assessment and Plan: - Counseled on cessation. (7) DVT prophylaxis Current Visit: Yes Status: Acute Assessment and Plan: - SCDs. - Time Spent with Patient Total time spent is greater than 50% in coordination of care (as documented) at patient's floor/unit and/or counseling patient: Internal Medicine: Result - Labs CBC & Chem 7: 10/20/18 01:24 10/20/18 01:24 Labs: Short CBC 10/20/18 Range/Units 01:24 WBC 10.3 (4.3-11.1) K/mcL Hgb 12.4 L (12.9-16.9) g/dL Hct 37.3 L (37.5-50.1) % Plt Count 274 (140-400) K/mcL BMP 10/20/18 01:24 Sodium 135 L Potassium 3.9 Chloride 100 Carbon Dioxide 26 BUN 16 Creatinine 1.21 Glucose 101 Calcium 8.1 L Consult Discharge Plan - Plan Referrals: Solitario Pendleton DO [Primary Care Provider] - (2) UTI (urinary tract infection) Qualifiers: Urinary tract infection type: acute cystitis Hematuria presence: without hematuria Qualified Code(s): N30.00 - Acute cystitis without hematuria
[2018-10-20] MEDS: *HR* FentaNYL (PF) 100 MCG/2 ML VIAL IVP PRN ×4 (13:25→13:40)
[2018-10-20] MEDS: *HR* Midazolam HCl 5 MG/5 ML VIAL IVP PRN ×4 (13:25→13:40)
--- NOTE | 2018-10-20 16:48 | Urology Progress Note ---
Date of Encounter: 10/20/18 Time of Encounter: 16:46 - Assessment and Plan (1) Ureteral stone with hydronephrosis Current Visit: Yes Status: Acute Assessment and plan: My office will arrange for outpatient follow-up and planning for definitive surgical management of stone in one week. Anticipate definitive stone procedure in approximately 2 weeks follow-up culture confirms resolution of active urinary tract infection. (2) Left ureteral calculus Current Visit: Yes Status: Acute (3) UTI (urinary tract infection) Current Visit: Yes Status: Acute Qualifiers: Qualified Code(s): N30.00 - Acute cystitis without hematuria Objective Initial Vital Signs Temp Pulse Resp BP Pulse Ox 100.6 F H 109 20 136/73 96 10/16/18 09:44 10/16/18 09:44 10/16/18 09:44 10/16/18 09:44 10/16/18 09:44 - Labs 10/20/18 01:24 10/20/18 01:24 Diabetes panel 10/20/18 Range/Units 01:24 Sodium 135 L (136-145) mEq/L Potassium 3.9 (3.5-5.1) mEq/L Chloride 100 (98-107) mEq/L Carbon Dioxide 26 (23-29) mEq/L BUN 16 (6-20) mg/dL Creatinine 1.21 (0.70-1.30) mg/dL Glucose 101 (70-105) mg/dL Calcium 8.1 L (8.6-10.3) mg/dL Calcium panel 10/20/18 Range/Units 01:24 Calcium 8.1 L (8.6-10.3) mg/dL Pituitary panel 10/20/18 Range/Units 01:24 Sodium 135 L (136-145) mEq/L Potassium 3.9 (3.5-5.1) mEq/L Chloride 100 (98-107) mEq/L Carbon Dioxide 26 (23-29) mEq/L BUN 16 (6-20) mg/dL Creatinine 1.21 (0.70-1.30) mg/dL Glucose 101 (70-105) mg/dL Calcium 8.1 L (8.6-10.3) mg/dL Adrenal panel 10/20/18 Range/Units 01:24 Sodium 135 L (136-145) mEq/L Potassium 3.9 (3.5-5.1) mEq/L Chloride 100 (98-107) mEq/L Carbon Dioxide 26 (23-29) mEq/L BUN 16 (6-20) mg/dL Creatinine 1.21 (0.70-1.30) mg/dL Glucose 101 (70-105) mg/dL Calcium 8.1 L (8.6-10.3) mg/dL Consult Discharge Plan - Plan Referrals: Solitario Pendleton DO [Primary Care Provider] -
[2018-10-20] MEDS: Ketorolac 15 MG/ML VIAL IVP PRN (20:33)
[2018-10-21] MEDS: *HR* Enoxaparin 40 MG/0.4 ML SYRINGE SQ SCH (05:23)
[2018-10-21 05:58] LABS: Hematocrit 37.8 % (37.5-50.1); Hemoglobin 12.7 g/dL (12.9-16.9); Mean Corpuscular HGB Conc 33.6 g/dL (31.6-35.5); Mean Corpuscular Volume 89.2 fL (83.0-100.0); Mean Platelet Volume 8.9 fL (9.4-12.4); Platelet Count 337 K/mcL (140-400); Red Blood Count 4.24 M/mcL (4.19-5.50); Red Cell Distribution Width 12.9 % (11.5-14.5)
--- NOTE | 2018-10-21 08:50 | Infectious Disease Progress No ---
ID Progress Note Date of Encounter: 10/21/18 Time of Encounter: 09:35 - Subjective Subjective: Patient is seen and examined at bedside. He is scheduled for transesophageal echocardiogram under anesthesia today. He has no acute complaints. He is feeling well. He wants to go home today. He is been taking Ancef without any issues. - Objective CBC & Chem 7: 10/21/18 05:10 10/20/18 01:24 - Exam Vitals: Temp Pulse Resp BP Pulse Ox 98.1 F 68 18 136/77 99 10/21/18 07:26 10/21/18 07:26 10/21/18 07:26 10/21/18 07:26 10/21/18 07:26 Exam: Gen: Vitals noted. No acute distress. Eyes: anicteric sclerae, moist conjunctivae, no conjunctival hemorrhage; no lid- lag; Pupils equal and reactive to light HENT: Atraumatic; oropharynx clear with moist mucous membranes and no mucosal ulcerations; normal hard and soft palate Neck: Trachea midline; supple, no thyromegaly or lymphadenopathy Cardiac: RRR, no murmur, +S1/S2 Pulmonary: CTA bilaterally, no wheezes, rales or rhonchi, equal chest expansion Abdomen: soft, nontender, no guarding. No masses or hepatosplenomegaly MSK: ROM intact, no joint swelling noted Extremities: no BLE edema, nontender calf, no cyanosis or clubbing. Skin: Normal temperature, turgor and texture; no rash, ulcers or subcutaneous nodules. No sequela of infective endocarditis Neuro: moves all extremities, no focal deficits. Psych: Appropriate mood and behavior. A&Ox3 - Assessment and Plan (1) Sepsis Status: Acute Sepsis, secondary to MSSA bacteremia in the setting of complicated UTI SIRS Criteria: WBC 23.1, temperature 100.6, heart rate 109, respiratory rate 20. Source, MSSA bacteremia. Complicated UTI Presented with urinary tract infection with left ureteral stone, likely urinary tract is seated from blood Patient does have history of recent deep laceration of finger while at work, possible source Patient does deny history of IV drug use or other illicit behaviors that may result in bacteremia TTE 10/17/18 negative for valvular vegetations, or new valvular dysfunction ROCIO attempted on 10/20/18 however patient was unable to tolerate procedure due to failed sedation Linares criteria One major (positive cultures 2) One minor (fever) Cultures 10/19/18 blood cultures NGTD 2 10/17/18 blood cultures GPC 2, PCR positive for MSSA 10/16/18 blood cultures MSSA positive 2 10/16/18 urine cultures MSSA positive Antibiotics Cefazolin 2g q8h Day 4 Recommendations -Continue Cefazolin for 4 weeks IV antibiotics for complicated MSSA bacteremia if ROCIO negative. 11/14 Stop day -Patient may have a midline placed today as he has had 48hrs of negative culture s -Recommend ROCIO under anesthesia. Communicated to Primary team -Management of renal calculi per urology Qualifiers: Sepsis type: sepsis due to unspecified organism Qualified Code(s): A41.9 - Sepsis, unspecified organism SNOMED Code(s): 00750543 (2) Bacteremia Status: Acute MSSA bacteremia, etiology unclear. Complicated It is likely that the patient's UTI is seeded from the bacteremia rather than the reverse We will recommend ROCIO under anesthesia to rule out infective endocarditis The patient will require 4 weeks of IV antibiotics for treatment for stop date of 11/14 SNOMED Code(s): 7069593 (3) UTI (urinary tract infection) Status: Acute Urinary tract infection with MSSA secondary to seeding due to bacteremia Complicated due to nephrolithiasis Treatment with Ancef is appropriate Management of stones per urology Qualifiers: Urinary tract infection type: acute cystitis Hematuria presence: without hematuria Qualified Code(s): N30.00 - Acute cystitis without hematuria SNOMED Code(s): 43578093 (4) Kidney stone on left side Status: Acute Management per urology SNOMED Code(s): 30954703 Consult Discharge Plan - Plan Instructions: Oxycodone/Acetaminophen (By mouth), Tamsulosin (By mouth) Referrals: Solitario Pendleton DO [Primary Care Provider] - 10/28/18 2:30 pm Camacho Cramer [Partnered Physician] - 11/04/18 8:30 am Shonda May MD [Partnered Physician] - (OFFICE WILL CALL WITH APPOINTMENT DATE AND TIME) Prescriptions: CeFAZolin Syr 2,000MG/20 ML [Ancef Syringe 2,000 MG/20 ML] 2,000 mg IVPB Q8H #21 syringe Tamsulosin [Flomax] 0.4 mg PO BID 30 Days #60 capsule Oxycodone HCl/Acetaminophen [Percocet 5-325 mg Tablet] 1 each PO Q6H PRN 2 Days #8 tablet PRN Reason: Pain - Attending Attestation Patient was discharged before I could evaluate
--- NOTE | 2018-10-21 10:12 | Discharge Summary ---
Orders not resulted at time of discharge: Pending orders 10/19/18 08:04 Culture,Blood [BC] Routine 10/20/18 17:11 EV ROCIO w anes Routine Date of Encounter: 10/21/18 Time of Encounter: 08:30 - Discharge Diagnosis (1) Left ureteral calculus Priority: Primary Status: Acute (2) UTI (urinary tract infection) Priority: Primary Status: Acute Qualifiers: Urinary tract infection type: acute cystitis Hematuria presence: without hematuria Qualified Code(s): N30.00 - Acute cystitis without hematuria (3) Severe sepsis Priority: Primary Status: Resolved (4) Bacteremia Priority: Primary Status: Acute (5) ADRIENNE (acute kidney injury) Priority: Primary Status: Resolved (6) Tobacco abuse Priority: Secondary Status: Chronic Hospital course: Mr. Anderson is a 43 year old male with a past medical history of a right ureteral stent on 05/13/15 that presented for left-sided abdominal pain. Admitted to a similar episode one year ago of having a kidney stone. Admitted to subjective fever at home. Was having dysuria and constipation. UA on arrival showed positive leukocyte esterase. Patient was started on Rocephin. On arrival patient was slightly febrile at 100.6. He was tachycardic but blood pressure was normotensive. He displayed a leukocytosis of 23.1. Was initially put on rocpehin but than changed to ciprofloxacin. CT of the abdomen showed a 7 x 5 mm obstructing calculus in the distal left ureter in the mid pelvis with mild hydronephrosis and hydroureter. Patient underwent a left ureteral stent placement. Blood cultures were positive for Staph A. Antibiotics were changed to Ancef IV. A transthoracic echocardiogram was ordered to rule out any valvular vegetations which it showed none. This was followed up with a Transesophageal echocardiogram. Patient's WBC count was been down-trending during his hospital stay and has significantly improved. Patient was evaluated by urology and determined to have surgical management in the outpatient setting in 2 weeks once complete resolution of UTI. When seen today, patient says his pain is well controlled. He denies any abdominal or flank pain. Denies any nausea or vomiting. Denies any fever, cough, or wheezing. Patient will be discharged home today with a 4 week course of IV Ancef if ROCIO results are normal, otherwise will need a 6-week course instead. Patient is to follow-up with Urology in 2-weeks, infectious disease in the next week, and with his PCP in the next 3-4 days. - Time Spent with Patient Total time spent providing and/or coordinating discharge services: Time spent: Greater than 30 minutes - Discharge Medications Prescriptions: New CeFAZolin Syr 2,000MG/20 ML [Ancef Syringe 2,000 MG/20 ML] 2,000 mg IVPB Q8H #21 syringe Tamsulosin [Flomax] 0.4 mg PO BID 30 Days #60 capsule Oxycodone HCl/Acetaminophen [Percocet 5-325 mg Tablet] 1 each PO Q6H PRN 2 Days #8 tablet PRN Reason: Pain Home Medications: CeFAZolin Syr 2,000MG/20 ML [Ancef Syringe 2,000 MG/20 ML] 2,000 mg IVPB Q8H #21 syringe 10/21/18 [Rx] Oxycodone HCl/Acetaminophen [Percocet 5-325 mg Tablet] 1 each PO Q6H PRN 2 Days #8 tablet 10/21/18 [Rx] Tamsulosin [Flomax] 0.4 mg PO BID 30 Days #60 capsule 10/21/18 [Rx] Allergies/Adverse Reactions: Allergy/AdvReac Type Severity Reaction Status Date / Time No Known Allergies Allergy Verified 10/17/18 19:58 Date of admission: 10/18/18 17:27 Primary care physician: Bimal Pendleton DO Consults: 10/16/18 11:15 Consult to Urology [CONS] Stat Consulting Provider: [facility] [place] Reason for Consult: septic kidney stone on the left Time Notified: 11:16 Call Completed: Yes 10/19/18 15:51 Consult to Infectious Diseases [CONS] Routine Consulting Provider: Infectious Disease [place] Reason for Consult: MSSA bacteremia and kidney stone Call Completed: Yes 10/21/18 08:51 Midline [Consult to Invasive Line Access Team] [CONS] Routine Reason for Consult: IV antibiotics for home Line Type: Midline 10/21/18 08:52 Consult to Anesthesiology [CONS] Routine Consulting Provider: Anest[facility] [place] Reason for Consult: Pt requires ROCIO, couldn't adequately sedate patient yesterday to perform testing. Anesthia guidance requested. Time Notified: 08:58 Call Completed: Yes Discharging clinician: Tai Dorsey Anticipated date of discharge: 10/21/18 - Constitutional Vitals: Temp Pulse Resp BP Pulse Ox 98.1 F 68 18 136/77 99 10/21/18 07:26 10/21/18 07:26 10/21/18 07:26 10/21/18 07:26 10/21/18 07:26 Exam: GENERAL APPEARANCE: Well developed, well nourished, alert and cooperative, and appears to be in no acute distress. HEAD: normocephalic. EYES: vision is grossly intact. EARS: External auditory canals and tympanic membranes clear, hearing grossly intact. NOSE: No nasal discharge. THROAT: Oral cavity and pharynx normal. No inflammation, swelling, exudate, or lesions. Teeth and gingiva in good general condition. NECK: Neck supple, non-tender without lymphadenopathy, masses or thyromegaly. CARDIAC: Normal S1 and S2. No S3, S4 or murmurs. Rhythm is regular. There is no peripheral edema, cyanosis or pallor. Extremities are warm and well perfused. Capillary refill is less than 2 seconds. No carotid bruits. LUNGS: Clear to auscultation and percussion without rales, rhonchi, wheezing or diminished breath sounds. ABDOMEN: Positive bowel sounds. Soft, nondistended, nontender. No guarding or rebound. No masses. MUSKULOSKELETAL: Adequately aligned spine. ROM intact spine and extremities. No joint erythema or tenderness. Normal muscular development. Normal BACK: No CVA tenderness bilaterally. EXTREMITIES: No significant deformity or joint abnormality. No edema. Peripheral pulses intact. No varicosities. LOWER EXTREMITY: Examination of both feet reveals all toes to be normal in size and symmetry, normal range of motion, normal sensation with distal capillary filling of less than 2 seconds without tenderness, swelling, discoloration, nodules, weakness or deformity; SKIN: Skin normal color, texture and turgor with no lesions or eruptions. PSYCHIATRIC: The mental examination revealed the patient was oriented to person, place, and time. - Patient Status Disposition: Home Health Service Condition: Good Functional capacity at discharge: independent ambulation Overall status at discharge: patient is progressing back to baseline - Discharge Instructions Instructions: Oxycodone/Acetaminophen (By mouth), Tamsulosin (By mouth) Follow Up With: Solitario Pendleton DO [Primary Care Provider] - Camacho Cramer [Partnered Physician] - Shonda May MD [Partnered Physician] - Forms: Work/School Release - Diet and Activity Activity: increase activity as tolerated Diet: low fat, low cholesterol, low salt diet
--- NOTE | 2018-10-21 10:25 | Physician Discharge Referral ---
Home Health/Hosp Referral Info Transfer to: Home Health Provider in Charge Post Discharge: PCP - Diagnosis (1) Left ureteral calculus Priority: Primary Status: Acute (2) UTI (urinary tract infection) Priority: Primary Status: Acute (3) Severe sepsis Priority: Primary Status: Resolved (4) Bacteremia Priority: Primary Status: Acute (5) ADRIENNE (acute kidney injury) Priority: Primary Status: Resolved (6) Tobacco abuse Priority: Secondary Status: Chronic - Respiratory Orders Smoking Cessation: Smoking cessation has been advised. For more information, call the [place] [employer] Quit Line at 9-316-WFBK-NOW. - Diet/Nutrition Diet/Nutrition Orders: Renal - Activity Activity Orders: Ambulate - Services Needed Following services are medically necessary services: Home Health Aide Home Care Orders: Patient to be discharged home with IV antibiotics. - Transfer Medications Prescriptions: CeFAZolin Syr 2,000MG/20 ML [Ancef Syringe 2,000 MG/20 ML] 2,000 mg IVPB Q8H #21 syringe Tamsulosin [Flomax] 0.4 mg PO BID 30 Days #60 capsule Oxycodone HCl/Acetaminophen [Percocet 5-325 mg Tablet] 1 each PO Q6H PRN 2 Days #8 tablet PRN Reason: Pain Home Medications: CeFAZolin Syr 2,000MG/20 ML [Ancef Syringe 2,000 MG/20 ML] 2,000 mg IVPB Q8H #21 syringe 10/21/18 [Rx] Oxycodone HCl/Acetaminophen [Percocet 5-325 mg Tablet] 1 each PO Q6H PRN 2 Days #8 tablet 10/21/18 [Rx] Tamsulosin [Flomax] 0.4 mg PO BID 30 Days #60 capsule 10/21/18 [Rx] Allergies/Adverse Reactions: Allergy/AdvReac Type Severity Reaction Status Date / Time No Known Allergies Allergy Verified 10/17/18 19:58 Certification: Further, I certify that my clinical findings support that this patient is homebound (i.e. absences from home require considerable and taxing effort and are for medical reasons or jain services or infrequently or short duration when for other reasons) because: Homebound Reason: Patient requires assistance of a person or device to safely leave home Attestation: My signature below is to certify that this patient is under my care and that I, or nurse practitioner, or a physician's advertising sales assistant working with me, has a [id number] encounter with this patient.
[2018-10-21 13:46] VITALS: BP 141/76
--- NOTE | 2018-10-21 13:50 | Anesthesia Evaluation PreOp ---
Date of Encounter: 10/21/18 Time of Encounter: 13:48 - Past History Planned Operation: ROCIO Cardiac History: Denies any Significant Hx Pulmonary History: Smoker MEDICAL CLAIMS REPRESENTATIVE History: Other (anxiety, depression) Other Medical History: Denies Any Significant HX, Other (BMI 41, bacteremia) Anesthesia History: No Prior Anesthetic Complications, Past Anesthesia (recent cysto and stent placement) Alcohol Use: none Drug use: none Medications and Allergies CeFAZolin Syr 2,000MG/20 ML [Ancef Syringe 2,000 MG/20 ML] 2,000 mg IVPB Q8H #21 syringe 10/21/18 [Rx] Oxycodone HCl/Acetaminophen [Percocet 5-325 mg Tablet] 1 each PO Q6H PRN 2 Days #8 tablet 10/21/18 [Rx] Tamsulosin [Flomax] 0.4 mg PO BID 30 Days #60 capsule 10/21/18 [Rx] Allergy/AdvReac Type Severity Reaction Status Date / Time No Known Allergies Allergy Verified 10/17/18 19:58 - Meds/Allergy Pre-op Review Medications Reviewed: Yes Allergies Reviewed: Yes Beta Blockers on Current Med List: No Anesthesia Results - Labs 10/21/18 05:10 10/20/18 01:24 - Imaging Additional studies: EV/EV echocardiogram Impressions: LVEF 60%. Normal LV chamber size, wall thickness and function. Mild left ventricular diastolic dysfunction. Normal right ventricular structure and function. Unable to estimate RVSP due to lack of TR jet. No obvious significant valvular dysfunction. Anesthesia Exam Vital Signs/O2 Sat, Most Current Temp Pulse Resp BP Pulse Ox 97.8 F 78 14 141/76 99 10/21/18 13:42 10/21/18 13:42 10/21/18 13:42 10/21/18 13:42 10/21/18 13:42 Weight: 122kg NPO (# of Hours): MN - HEENT Pupil (Motor): Pupils equal, EOMI Mallampati: III Teeth: Normal Oral Opening: Greater than 3 - MEDICAL CLAIMS REPRESENTATIVE LOC: Oriented MEDICAL CLAIMS REPRESENTATIVE Motor: Normal RUE, Normal LUE, Normal RLE, Normal LLE, Normal Face MEDICAL CLAIMS REPRESENTATIVE Sensory: Normal: RUE, LUE, RLE, LLE, Face - Cardiac Rhythm: Regular - Pulmonary Breath Sounds: bilateral Clear Respiratory Effort: Symmetrical Anesthesia Assess/Plan ASA Score: 3 Anesthetic Plan: General (plan b) Monitoring Plan: Standard Monitors Recovery Plan: PACU
--- NOTE | 2018-10-21 14:46 | Anesthesia Evaluation Post Op ---
Date of Encounter: 10/21/18 Time of Encounter: 14:45 - Vital Signs Vital Signs: Vital Signs/O2 Sat, Most Current Temp Pulse Resp BP Pulse Ox 97.8 F 78 14 141/76 99 10/21/18 13:42 10/21/18 13:42 10/21/18 13:42 10/21/18 13:42 10/21/18 13:42 - Lungs Lungs: Clear Ascult./Percussion - Airway Airway: Non-obstructed - Cardiovascular Regular Rate - Mental Status Mental Status: Alert & Oriented, Answers Appropriately - Pain Pain Scale: 0 Pain Scale used: Numeric (1 - 10) - Nausea Vomiting Nausea Vomiting: Not Present - Hydration Hydration: NPO - Discharge PostOp Status: Transfer Patient to floor
== END 2018-10-21 15:35 | disposition home health service (06) | DRG 854 ==
LOC: EMEROOARM 09:41 → 2ANU 09:41 → SUATTDRO 13:50 → 2ANU 14:18
PROVIDERS: ADMIT Internal Medicine; ATTEND Internal Medicine